=== PATIENT | female | born 1940 ===

== ENCOUNTER → 2021-11-27 10:44 | Outpatient (BNVA) | payer MEDICARE, MEDICAID, SELFPAY | PROVIDERS: PCP Family Medicine; Referring Provider Family Medicine; Visit Provider Internal Medicine Cardiovascular Disease | DX: E66.01 Morbid (severe) obesity due to excess calories (principal); R07.9 Chest pain, unspecified; I45.10 Unspecified right bundle-branch block; R06.00 Dyspnea, unspecified | CPT/HCPCS: 93005; 99203 ==

== ENCOUNTER 2021-11-27 11:08 | Outpatient (CLI) | payer MEDICARE, MEDICAID, SELFPAY ==
--- NOTE | 2021-11-27 11:00 | RT.EKG_ITS ---
APPROVED REPORT Exam: Resting ECG Reason for Exam: NPW, Baseline needed Patient Location: O HR:90 bpm ECG Measurements Heart Rate 90 AXIS [place] 198 P -81 QRSd 152 QRS 36 QT 416 T 10 QTc 509 Conclusion Sinus l rhythm...P axis (-45,135) Right bundle branch block...QRSd>120, terminal axis(90,270)
== END 2021-11-27 11:09 | disposition home or self-care (01) ==
LOC: DI.CARD 11:09
PROVIDERS: PCP Family Medicine; Visit Provider Internal Medicine Cardiovascular Disease
DX: R06.00 Dyspnea, unspecified (principal); R07.89 Other chest pain
CPT/HCPCS: 93010

== ENCOUNTER 2022-08-23 13:56 | Outpatient (CLI) | payer MEDICARE, MEDICAID, SELFPAY ==
--- OUTSIDE RECORDS SUMMARY | 2022-08-23 14:07 | XMS_ITS | Continuity of Care Document ---
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 Name Role Phone Alison Conley Primary Care Physician Encounter [facility] Date(s): 04/04/22 - 04/04/22 [facility] [address] [place] [address] Discharge Disposition: Home or Self Care Attending Physician: Alison Conley MD Admitting Physician: Alison Conley MD Referring Physician: Alison Conley MD Allergies, Adverse Reactions, Alerts No Known Medication Allergies Substance Reaction Severity Status MUSHROOM Anaphylactic reaction Unknown Active Assessment and Plan Future Appointments Immunizations Given and Recorded Vaccine Date Status Refusal Reason influenza virus vaccine, inactivated 03/21/22 Give n influenza virus vaccine, inactivated 03/16/20 Yvon rded influenza virus vaccine, inactivated 03/22/15 Yvon rded influenza virus vaccine, inactivated 03/09/14 Yvon rded influenza virus vaccine, inactivated 02/23/13 Yvon rded influenza virus vaccine, inactivated 03/10/12 Yvon rded influenza virus vaccine, inactivated 03/08/11 Yvon rded influenza virus vaccine, inactivated 03/22/10 Yvon rded influenza virus vaccine, inactivated 04/06/09 Yvon rded influenza virus vaccine, inactivated 03/31/08 Yvon rded influenza virus vaccine, inactivated 03/16/07 Yvon rded influenza virus vaccine, inactivated 04/03/06 Yvon rded influenza virus vaccine, inactivated 04/09/05 Yvon rded influenza, unspecified formulation 03/15/21 Record ed SARS-CoV-2 (COVID-19) mRNA-1273 vaccine 08/28/20 R ecorded SARS-CoV-2 (COVID-19) mRNA-1273 vaccine 07/31/20 R ecorded zoster vaccine, inactivated 04/18/20 Recorded pneumococcal 13-valent conjugate vaccine 12/15/15 Recorded tetanus/diphth/pertuss (Tdap) adult/adol 11/05/10 Recorded Novel [id number], all formulation 06/21/09 Recorded zoster vaccine live 10/29/07 Recorded pneumococcal 23-polyvalent vaccine 09/08/06 Record ed pneumococcal 23-polyvalent vaccine 03/16/97 Record ed tetanus-diphth toxoids (Td) adult/adol 04/16/01 Re corded Medications acetaminophen-codeine 300 mg-30 mg oral tablet 2 tab, Oral, TID, PRN other (see comment), as needed, # 30 tab, 0 Refill(s), Pharmacy: [email or web address] Start Date: 11/27/21 Status: Ordered Advair Diskus 500 mcg-50 mcg inhalation powder 1 puff, Inhale, BID Start Date: 10/31/21 Status: Ordered aspirin 81 mg oral delayed release tablet 1 tab, Oral, Daily, for 90 days, 0 Refill(s) Start Date: 10/31/21 Status: Ordered atenolol 100 mg oral tablet 100 mg = 1 tab, Oral, Daily, for 90 days, # 90 tab, 1 Refill(s), Pharmacy: [facility] Start Date: 12/13/21 Status: Ordered BD UF SHORT PEN NEEDLES 8MM X 31 GAUGE BD UF SHORT PEN NEEDLES 8MM X 31 GAUGE, SIG USE 4 PEN NEEDLES DAILY QTY 100 X 6 REFILLS, Supply, See instructions, # 1 EA, 0 Refill(s), Pharmacy: [facility] Start Date: 11/06/21 Status: Ordered brimonidine 0.2% ophthalmic solution 1 drops, Eye-Right, BID Start Date: 12/05/21 Status: Ordered calcium (as carbonate)-vitamin D 600 mg-400 intl units oral tablet 1 tab, Oral, Daily, for 90 days; buys OTC DO NOT SEND RX Start Date: 10/31/21 Status: Ordered cetirizine 10 mg oral tablet 1 tab, Oral, Daily, Take for 90 days, 0 Refill(s) Start Date: 10/31/21 Status: Ordered Colace 100 mg oral capsule 1 cap, Oral, BID, PRN other (see comment), as needed, 0 Refill(s) Start Date: 10/31/21 Status: Ordered DilTIAZem (Eqv-Cardizem CD) 120 mg/24 hours oral capsule, extended release 1 cap, Oral, Daily, # 90 cap, 2 Refill(s), Pharmacy: [facility]58, 157.48, cm, 12/29/21 14:21:00 EDT, Height/Length Dosing, 117.93, kg, 12/29/21 14:21:00 EDT, Weight Dosing Start Date: 04/02/22 Status: Ordered DME Supply, See instructions, # 1 EA, 0 Refill(s) Start Date: 10/31/21 Status: Ordered DME Supply, See instructions, # 1 EA, 0 Refill(s) Start Date: 10/31/21 Status: Ordered DME Supply, See instructions, # 1 EA, 0 Refill(s) Start Date: 10/31/21 Status: Ordered DME Supply, See instructions, # 1 EA, 0 Refill(s) Start Date: 10/31/21 Status: Ordered Eliquis 5 mg oral tablet 1 tab, Oral, BID, # 60 tab, 1 Refill(s), Pharmacy: [facility], 157.48, cm, 12/29/21 14:21:00 EDT, Height/Length Dosing, 117.93, kg, 12/29/21 14:21:00 EDT, Weight Dosing Start Date: 03/11/22 Status: Ordered FLUoxetine 10 mg oral capsule 1 cap, Oral, every morning, # 90 cap, 2 Refill(s), Pharmacy: [facility], 157.48, cm, 12/29/21 14:21:00 EDT, Height/Length Dosing, 117.93, kg, 12/29/21 14:21:00 EDT, Weight Dosing Start Date: 04/02/22 Status: Ordered fluticasone 50 mcg/inh nasal spray 50 mcg 1 sprays, Nasal, every night at bedtime, for 30 days, # 15.8 mL, 3 Refill(s), Pharmacy: [facility], 157.48, cm, 12/29/21 14:21:00 EDT, Height/Length Dosing, 117.93, kg, 12/29/21 14:21:00 EDT, Weight Dosing Start Date: 01/07/22 Status: Ordered folic acid 1 mg oral tablet 1 tab, Oral, every morning, 0 Refill(s) Start Date: 10/31/21 Status: Ordered furosemide 40 mg oral tablet 40 mg = 1 tab, Oral, Daily, for 90 days, # 90 tab, 3 Refill(s), Pharmacy: [facility], 157.48, cm, 12/29/21 14:21:00 EDT, Height/Length Dosing, 117.93, kg, 12/29/21 14:21:00 EDT, Weight Dosing Start Date: 01/22/22 Status: Ordered gabapentin 100 mg oral capsule 1 cap, Oral, every evening, for 90 days, 0 Refill(s) Start Date: 10/31/21 Status: Ordered glucosamine 500 mg oral capsule 500 mg = 1 cap, Oral, BID, 0 Refill(s) Start Date: 10/31/21 Status: Ordered Incruse Ellipta 62.5 mcg/inh inhalation powder 1 puff, Inhale, Daily Start Date: 10/31/21 Status: Ordered lansoprazole 15 mg oral delayed release capsule 1 cap, Oral, Daily, for 90 days, 0 Refill(s) Start Date: 10/31/21 Status: Ordered Levemir FlexTouch 100 units/mL subcutaneous solution 55 units =, Subcutaneous, BID, # 45 mL, 3 Refill(s), Pharmacy: [facility], 157.48, cm, 12/29/21 14:21:00 EDT, Height/Length Dosing, 117.93, kg, 12/29/21 14:21:00 EDT, Weight Dosing Start Date: 01/07/22 Status: Ordered losartan 50 mg oral tablet 50 mg = 1 tab, Oral, Daily, # 90 tab, 0 Refill(s) Start Date: 10/31/21 Status: Ordered magnesium glycinate 200 mg oral tablet 400 mg = 2 tab, Oral, every evening, # 180 tab, 0 Refill(s), Pharmacy: [facility] Start Date: 12/06/21 Stop Date: 03/06/22 Status: Ordered montelukast 10 mg oral tablet 10 mg = 1 tab, Oral, Daily, # 90 tab, 1 Refill(s), Pharmacy: [facility], 157.48, cm, 12/29/21 14:21:00 EDT, Height/Length Dosing, 117.93, kg, 12/29/21 14:21:00 EDT, Weight Dosing Start Date: 03/08/22 Status: Ordered multivitamin adult, oral tablet 1 tab, Oral, Daily, 0 Refill(s) Start Date: 10/31/21 Status: Ordered nitroglycerin 0.4 mg sublingual tablet 1 tab, SL, PRN other (see comment), as needed, 0 Refill(s) Start Date: 10/31/21 Status: Ordered NovoLOG FlexPen 100 units/mL injectable solution 22 units =, Subcutaneous, TID, # 15 mL, 2 Refill(s), Pharmacy: [facility], 157.48, cm, 12/29/21 14:21:00 EDT, Height/Length Dosing, 117.93, kg, 12/29/21 14:21:00 EDT, Weight Dosing Start Date: 02/05/22 Status: Ordered potassium chloride 20 mEq oral tablet, extended release 20 mEq = 1 tab, Oral, Daily, PRN other (see comment), as needed with Lasix, # 90 tab, 0 Refill(s), Pharmacy: [facility], 157.48, cm, 12/29/21 14:21:00 EDT, Height/Length Dosing, 117.93, kg,12/29/21 14:21:00 EDT, Weight Dosing Start Date: 03/08/22 Status: Ordered pramipexole 0.125 mg oral tablet 1 tab, Oral, BID, for restless legs, 0 Refill(s) Start Date: 10/31/21 Status: Ordered rosuvastatin 5 mg oral tablet 5 mg = 1 tab, Oral, every evening, for 90 days, # 90 tab, 3 Refill(s), Pharmacy: [facility] Start Date: 11/19/21 Status: Ordered Send to [facility], [facility], Supply, See instructions, # 1 EA, 0 Refill(s) Start Date: 12/06/21 Status: Ordered Ventolin HFA 90 mcg/inh inhalation aerosol 180 mcg 2 puffs, Inhale, every 6 hr, use with spacer chamber as needed, # 18 g, 0 Refill(s), Pharmacy: [facility], 157.48, cm, 12/29/21 14:21:00 EDT, Height/Length Dosing, 117.93, kg, 12/29/21 14:21:00 EDT, Weight Dosing Start Date: 03/21/22 Status: Ordered Vitamin D3 1 tab, Oral, Daily, 0 Refill(s) Start Date: 10/31/21 Status: Ordered Problem List Condition Confirmation Course Effective Dates Status H ealth Status Informant Abdominal bloating Confirmed Active Acute pulmonary embolism Confirmed Active Allergic rhinitis Confirmed Active Amnesia Confirmed Active Backache Confirmed Active Bilateral deafness Confirmed Active Body mass index 40+ - severely obese Confirmed Active Bunion Confirmed 08/14/20 Active Cerebrovascular disease Confirmed Active [place] 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 edema Confirmed 10/19/20 Active Cystoid macular retinal degeneration Confirmed Active Depressive disorder Confirmed Active Diabetic peripheral neuropathy Confirmed 09/07/18 Active Dysphagia Confirmed Active Dyspnea Confirmed Active Gastroesophageal reflux disease Confirmed Active Generalized edema Confirmed Active History of polyp of colon Confirmed Active Hyperlipidemia Confirmed 09/07/18 Active Hypertensive disorder Confirmed Active Incisional hernia Confirmed Active Elevated glucose Confirmed Active Insomnia Confirmed Active Intrinsic asthma Confirmed Active Iron deficiency anemia Confirmed Active Irritable bowel syndrome Confirmed Active Kidney disease Confirmed Active 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 Not for resuscitation Confirmed Active Obstructive sleep apnea syndrome Confirmed 09/29/18 Active Osteoarthritis Confirmed Active Proteinuria Confirmed Active Elevated TSH Confirmed Active Restless legs Confirmed 04/17/20 Active Right bundle branch block Confirmed Active Sciatica Confirmed Active Type 2 diabetes mellitus without complication Confirmed Active Umbilical hernia without obstruction or gangrene Confirmed Active Vertiginous syndrome Confirmed Active Procedures Procedure Date Related Diagnosis Body Site Status Echocardiography (procedure) 1 02/09/20 Completed Endoscopy 2 08/16/19 Completed Colonoscopy 3 10/05/18 Completed Cataract surgery of right eye 04/07/14 Completed Hernia repair 4 06/15/95 Completed Foot repair 5 06/15/81 Completed 165% EF 2With EGD- gastritis; 03/31/2017 polyp adjacent to vocal chords, small hiatal hernia, multiple gastric polyps, pedunculated duodenal polyps. 08/25/07, 12/10/0112/14/02 07/12/97 3over 10 polyps of colon, diverticular disease, external hemorrhoids. 08/30/15- poor prep, 2 polyps seen. 05/31/2015 4umbilical hernia repair with mesh 5right tendon repair Social History Social History Type Response Tobacco Never tobacco user T obacco Use:. Sex Female Patient Care team information Personnel Name: Alison Conley MD Address: Address: [place] [address]- [place]
--- OUTSIDE RECORDS SUMMARY | 2022-08-23 14:07 | XMS_ITS | CCD ---
Author Name Unknown Address [address] [place] [address] [phone] Organization Unknown Address [address] [place] [address] [phone] Care Team Providers Care Construction Helper Name Role Phone ELLEN PADILLA Attending Physician [phone] Vital Signs Unknown or Not Available. Allergies Unknown or Not Available. Procedures Unknown or Not Available. History of Immunizations Unknown or Not Available. Problems Unknown or Not Available. Results Unknown or Not Available. Active Medications Unknown or Not Available. Medications Administered During Visit Unknown or Not Available. Encounters Encounter Diagnosis Diagnosis Code Start Date Abnormal results of pulmonary function studies R 942 04/20/2021 Social History Smoking Status Code Start Date End Date Never smoker [id number] Patient Decision Aids Unknown or Not Available. Discharge Instructions You were admitted to [facility] on 04/20/2021 10:42 with a principal diagnosis of Abnormal results of pulmonary function studies You were discharged from [facility] on 04/20/2021 10:42 Should you have any questions prior to discharge, please contact a member of your healthcare team. If you have left the hospital and have any questions, please contact your primary care physician. Chief Complaint and Reason For Visit Unknown or Not Available. Function Status Unknown or Not Available. Plan of Care Unknown or Not Available. Referral/Transition of Care Unknown or Not Available.
--- OUTSIDE RECORDS SUMMARY | 2022-08-23 14:08 | XMS_ITS | Continuity of Care Document ---
Author Name Unknown Organization [facility] Address [address] [place] [address] Care Team Providers Care District [address] Administrator Name Role Phone Alison Conley Primary Care Physician [phone] Encounter [facility] Date(s): 04/24/22 - 04/24/[address] [id number] Encounter Diagnosis Allergy(Discharge Diagnosis) - 03/08/22 Discharge Disposition: Home or Self Care Attending Physician: Farhat Chan MD Admitting Physician: Farhat Chan MD Referring Physician: Alison Conley MD Allergies, Adverse Reactions, Alerts No Known Medication Allergies Substance Reaction Severity Status MUSHROOM Anaphylactic reaction Unknown Active Assessment and Plan Future Appointments Diagnostic Tests Pending * Surgical Pathology [facility] 04/24/22 Functional Status 04/24/22 Recent Travel History No recent travel Other exposure to Infectious Disease Non e Immunizations Given and Recorded Vaccine Date Status [...] Recorded tetanus/diphth/pertuss (Tdap) adult/adol 11/05/10 Recorded Novel [id number], all formulation 06/21/09 Recorded zoster vaccine live 10/29/07 Recorded pneumococcal 23-polyvalent vaccine 09/08/06 Record ed pneumococcal 23-polyvalent vaccine 03/16/97 Record ed tetanus-diphth toxoids (Td) adult/adol 04/16/01 Re corded Medications acetaminophen-codeine 300 mg-30 mg oral tablet 2 tab, Oral, TID, PRN other (see comment), as needed, # 30 tab, 0 Refill(s), Pharmacy: [id number] Start Date: 11/27/21 Status: Ordered Advair [...] days, # 90 tab, 1 Refill(s), Pharmacy: [facility] Start Date: 12/13/21 Status: Ordered BD UF SHORT PEN NEEDLES 8MM X 31 GAUGE BD UF SHORT PEN NEEDLES 8MM X 31 GAUGE, SIG USE 4 PEN NEEDLES DAILY QTY 100 X 6 REFILLS, Supply, See instructions, # 1 EA, 0 Refill(s), Pharmacy: [facility] Start Date: 11/06/21 Status: Ordered brimonidine [...] Daily, # 90 cap, 2 Refill(s), Pharmacy: [facility], 157.48, cm, 12/29/21 14:21:00 EDT, Height/Length [...] BID, # 60 tab, 1 Refill(s), Pharmacy: [facility], 157.48, cm, 12/29/21 14:21:00 EDT, Height/Length Dosing, 117.93, kg, 12/29/21 14:21:00 EDT, Weight Dosing Start Date: 03/11/22 Status: Ordered FLUoxetine 10 mg oral capsule 1 cap, Oral, every morning, # 90 cap, 2 Refill(s), Pharmacy: [facility], 157.48, cm, 12/29/21 14:21:00 EDT, Height/Length Dosing, 117.93, kg, 12/29/21 14:21:00 EDT, Weight Dosing Start Date: 04/02/22 Status: Ordered fluticasone 50 mcg/inh nasal spray 50 mcg 1 sprays, Nasal, every night at bedtime, for 30 days, # 15.8 mL, 3 Refill(s), Pharmacy: [facility], 157.48, cm, 12/29/21 14:21:00 EDT, Height/Length Dosing, 117.93, kg, 12/29/21 14:21:00 EDT, Weight Dosing Start Date: 01/07/22 Status: Ordered folic acid 1 mg oral tablet 1 tab, Oral, every morning, 0 Refill(s) Start Date: 10/31/21 Status: Ordered furosemide 40 mg oral tablet 40 mg = 1 tab, Oral, Daily, for 90 days, # 90 tab, 3 Refill(s), Pharmacy: [facility], 157.48, cm, 12/29/21 14:21:00 EDT, Height/Length Dosing, 117.93, kg, 12/29/21 14:21:00 EDT, Weight Dosing Start Date: 01/22/22 Status: Ordered gabapentin 100 mg oral capsule 100 mg = 1 cap, Oral, every evening, for 90 days, # 90 cap, 0 Refill(s), Pharmacy: [facility], 157.48, cm, 12/29/21 14:21:00 EDT, Height/Length Dosing, 117.93, kg, 12/29/21 14:21:00 EDT, Weight Dosing Start Date: 04/05/22 Status: Ordered glucosamine 500 mg oral capsule [...] BID, # 45 mL, 3 Refill(s), Pharmacy: [facility], 157.48, cm, 12/29/21 14:21:00 EDT, Height/Length Dosing, 117.93, kg, 12/29/21 14:21:00 EDT, Weight Dosing Start Date: 01/07/22 Status: Ordered losartan 50 mg oral tablet 50 mg = 1 tab, Oral, Daily, # 90 tab, 0 Refill(s) Start Date: 10/31/21 Status: Ordered magnesium glycinate 200 mg oral tablet 400 mg = 2 tab, Oral, every evening, # 180 tab, 0 Refill(s), Pharmacy: [facility] Start Date: 12/06/21 Stop Date: 03/06/22 Status: Ordered montelukast 10 mg oral tablet 10 mg = 1 tab, Oral, Daily, # 90 tab, 1 Refill(s), Pharmacy: [facility], 157.48, cm, 12/29/21 14:21:00 EDT, Height/Length [...] TID, # 15 mL, 2 Refill(s), Pharmacy: [facility], 157.48, cm, 12/29/21 14:21:00 EDT, Height/Length Dosing, 117.93, kg, 12/29/21 14:21:00 EDT, Weight Dosing Start Date: 02/05/22 Status: Ordered potassium chloride 20 mEq oral tablet, extended release 20 mEq = 1 tab, Oral, Daily, PRN other (see comment), as needed with Lasix, # 90 tab, 0 Refill(s), Pharmacy: [facility], 157.48, cm, 12/29/21 14:21:00 EDT, Height/Length Dosing, 117.93, kg,12/29/21 14:21:00 EDT, Weight Dosing Start Date: 03/08/22 Status: Ordered pramipexole 0.125 mg oral tablet 1 tab, Oral, BID, for restless legs, 0 Refill(s) Start Date: 10/31/21 Status: Ordered rosuvastatin 5 mg oral tablet 5 mg = 1 tab, Oral, every evening, for 90 days, # 90 tab, 3 Refill(s), Pharmacy: [facility] Start Date: 11/19/21 Status: Ordered Send to [place] Send to [place], Send to [place], Supply, See instructions, # 1 EA, 0 Refill(s) Start Date: 12/06/21 Status: Ordered Ventolin HFA 90 mcg/inh inhalation aerosol 180 mcg 2 puffs, Inhale, every 6 hr, use with spacer chamber as needed, # 18 g, 0 Refill(s), Pharmacy: [facility], 157.48, cm, 12/29/21 14:21:00 EDT, Height/Length [...] Confirmed 08/14/20 Active Cerebrovascular disease Confirmed Active 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 08/25/07, 06/12/07 12/14/02 07/12/97 3over 10 polyps of colon, diverticular disease, external hemorrhoids. 08/30/15- poor prep, 2 polyps seen. 05/31/2015 4umbilical hernia repair with mesh 5right tendon repair Results Laboratory List Name Date Glucose POCT 04/24/22 Most recent to oldest [Reference Range]: 1 Glucose POC [74-106 mg/dL] 87 mg/dL (04/24/22 7:14 AM) Vital Signs Most recent to oldest [Reference Range]: 1 2 3 Temperature Temporal Artery [36-38 Deg C] 35.7 Deg C *LOW* (04/24/22 8:41 AM) 36.8 Deg C (04/24/22 7:10 AM) Temperature Temporal Artery (DegF) [97.3-100 Deg F] 96.26 Deg F *LOW* (04/24/22 8:41 AM) Peripheral Pulse Rate [60-100 bpm] 70 bpm (04/24/22 9:20 AM) 86 bpm (04/24/22 9:00 AM) 65 bpm (04/24/22 8:50 AM) Heart Rate Monitored [60-100 bpm] 70 bpm (04/24/22 9:20 AM) 85 bpm (04/24/22 9:00 AM) 66 bpm (04/24/22 8:50 AM) Respiratory Rate [12-24 br/min] 17 br/min (04/24/22 9:20 AM) 24 br/min (04/24/22 9:00 AM) 23 br/min (04/24/22 8:50 AM) Blood Pressure [90-140/60-90 mmHg] 122/61mmHg (04/24/22 9:20 AM) 113/70mmHg (04/24/22 9:00 AM) 116/51mmHg (04/24/22 8:50 AM) Mean Arterial Pressure, Cuff [65-140 mmHg] 81 mmHg (04/24/22 9:20 AM) 84 mmHg (04/24/22 9:00 AM) 73 mmHg (04/24/22 8:50 AM) Weight 120.3 kg (04/24/22 7:10 AM) Weight Estimated 117.93 kg (04/16/22 9:39 AM) Height 157 cm (04/24/22 7:10 AM) Social History Social History Type Response Tobacco Never tobacco user T obacco Use:. Sex Female Hospital Discharge Instructions Patient Education 04/24/2022 08:22:02 ss colonoscopy discharge instructions (CUSTOM) COLONOSCOPY / SIGMOIDOSCOPY Following day: Return to full activity, including work. Diet: Eat and drink normally, unless instructed otherwise. Treatment for common after affects: Mild abdominal pain, bloating, or excessive gas: Rest, eat lightly and use a heating pad. Symptoms to watch for and report to your physician: SEVERE abdominal pain or bloating. Fever within 24 hours after procedure. A large amount of rectal bleeding. (A small amount of blood from the rectum is not serious, especially if hemorrhoids are present.) If a polyp has been removed- for the next seven days: Do not take aspirin. If you did NOT stop taking aspirin before your procedure, continue taking it even if you???ve had a polyp removed. If bright red rectal bleeding occurs, call your physician. If you have had a Colonoscopy: Do not attempt to drive a vehicle or operate power equipment of any kind for at least 24 hours after discharge from the hospital. Do not consume alcoholic beverages or other mood-altering drugs on the day of surgery. Mild irritation at needle site: Apply warm, moist pack to area for 20 minutes four times a day for 2-3 days. Call physician if persistent redness and/or drainage at needle site. In the event of any problems after surgery, do not hesitate to contact your doctor, [facility] , or the Emergency Room at [phone]. Diagnosis: Doctor: Follow Up Appointment: 04/24/2022 08:21:53 Colon Polyps Colon Polyps Colon polyps are tissue growths inside the colon, which is part of the large intestine. They are one of the types of polyps that can grow in the body. A polyp may be a round bump or a mushroom-shapedgrowth. You could have one polyp or more than one. Most colon polyps are noncancerous (benign). However, some colon polyps can become cancerous over time. Finding and removing the polyps early can help prevent this. What are the causes? The exact cause of colon polyps is not known. What increases the risk? The following factors may make you more likely to develop this condition: ??? Having a family history of colorectal cancer or colon polyps. ??? Being older than 45 years of age. ??? Being younger than 45 years of age and having a significant family history of colorectal canceror colon polyps or a genetic condition that puts you at higher risk of getting colon polyps. ??? Having inflammatory bowel disease, such as ulcerative colitis or Crohn's disease. ??? Having certain conditions passed from parent to child (hereditary conditions), such as: ??? Familial adenomatous polyposis (FAP). ??? Law syndrome. ??? Turcot syndrome. ??? Peutz???Jeghers syndrome. ??? MUTYH-associated polyposis (MAP). ??? Being overweight. ??? Certain lifestyle factors. These include smoking cigarettes, drinking too much alcohol, not getting enough exercise, and eating a diet that is high in fat and red meat and low in fiber. ??? Having had childhood cancer that was treated with radiation of the abdomen. What are the signs or symptoms? Many times, there are no symptoms. If you have symptoms, they may include: ??? Blood coming from the rectum during a bowel movement. ??? Blood in the stool (feces). The blood may be bright red or very dark in color. ??? Pain in the abdomen. ??? A change in bowel habits, such as constipation or diarrhea. How is this diagnosed? This condition is diagnosed with a colonoscopy. This is a procedure in which a lighted, flexible scope is inserted into the opening between the buttocks (anus) and then passed into the colon to examine the area. Polyps are sometimes found when a colonoscopy is done as part of routine cancer screening tests. How is this treated? This condition is treated by removing any polyps that are found. Most polyps can be removed during a colonoscopy. Those polyps will then be tested for cancer. Additional treatment may be needed depending on the results of testing. Follow these instructions at home: Eating and drinking ??? Eat foods that are high in fiber, such as fruits, vegetables, and whole grains. ??? Eat foods that are high in calcium and vitamin D, such as milk, cheese, yogurt, eggs, liver, fish, and broccoli. ??? Limit foods that are high in fat, such as fried foods and desserts. ??? Limit the amount of red meat, precooked or cured meat, or other processed meat that you eat, such as hot dogs, sausages, garnett, or meat loaves. ??? Limit sugary drinks. Lifestyle ??? Maintain a healthy weight, or lose weight if recommended by your health care provider. ??? Exercise every day or as told by your health care provider. ??? Do not use any products that contain nicotine or tobacco, such as cigarettes, e-cigarettes, andchewing tobacco. If you need help quitting, ask your health care provider. ??? Do not drink alcohol if: ??? Your health care provider tells you not to drink. ??? You are , may be , or are planning to become . ??? If you drink alcohol: ??? Limit how much you use to: ??? 0???1 drink a day for women. ??? 0???2 drinks a day for men. ??? Know how much alcohol is in your drink. In the [place] one drink equals one 12 oz bottle of beer (355 mL), one 5 oz glass of wine (148 mL), or one 1?? oz glass of hard liquor (44 mL). General instructions ??? Take acmt-cfl-fcotbep and prescription medicines only as told by your health care provider. ??? Keep all follow-up visits. This is important. This includes having regularly scheduled colonoscopies. Talk to your health care provider about when you need a colonoscopy. Contact a health care provider if: ??? You have new or worsening bleeding during a bowel movement. ??? You have new or increased blood in your stool. ??? You have a change in bowel habits. ??? You lose weight for no known reason. Summary ??? Colon polyps are tissue growths inside the colon, which is part of the large intestine. They are one type of polyp that can grow in the body. ??? Most colon polyps are noncancerous (benign), but some can become cancerous over time. ??? This condition is diagnosed with a colonoscopy. ??? This condition is treated by removing any polyps that are found. Most polyps can be removed during a colonoscopy. This information is not intended to replace advice given to you by your health care provider. Make sure you discuss any questions you have with your health care provider. Document Revised: 09/20/2020 Document Reviewed: 09/20/2020 [employer] Patient Education ?? 2021 [employer]. Discharge instructions * Keith Reece RN: PERFORM Event Display: Discharge Instructions Authored Date: [id number] JOANN EWA Seaman :1940 Age:82 years Sex:Female Visit Date:04/24/2022 Primary Care Physician: Alison Conley MD Hospital Discharge Instructions We would like to thank you for allowing us to assist you with your healthcare needs. The following includes patient education materials and information regarding your injury/illness. After you leave the hospital, you may get your health information including your test results, physician notes and discharge information by accessing your Patient Portal. Your Next Steps Scheduled Future Appointments 2021 10:15 AM EST ?? With: Amara Sewell NP Where: [facility] [address] [place] [address] Status: Confirmed 2021 1:00 PM EST ?? With: Paty Lanier PA-C Where: [facility] [address], [address] [place] [address] Status: Confirmed Friday 1:20 PM EST ?? Where: [facility] [address] [place] [address] Status: Confirmed Your Summary Your Care Team Admitting Physician - Farhat Chan MD Attending Physician - Farhat Chan MD Primary Care Physician - Alison Conley MD Referring Physician - Alison Conley MD Your Diagnosis Allergy Tests Performed/Pending Glucose POCT Allergies MUSHROOM??(Anaphylactic reaction) No Known Medication Allergies Education Materials COLONOSCOPY / SIGMOIDOSCOPY ? Following day: Return to full activity, including work. Diet: Eat and drink normally, unless instructed otherwise. ? Treatment for common after affects: Mild abdominal pain, bloating, or excessive gas: Rest, eat lightly and use a heating pad. ? Symptoms to watch for and report to your physician: SEVERE abdominal pain or bloating. ? Fever within 24 hours after procedure. ? A large amount of rectal bleeding. (A small amount of blood from the rectum is not serious, especially if hemorrhoids are present.) ? If a polyp has been removed- for the next seven days: Do not take aspirin. If you did NOT stop taking aspirin before your procedure, continue taking it even if you???ve had a polyp removed. ? If bright red rectal bleeding occurs, call your physician. ? If you have had a Colonoscopy: Do not attempt to drive a vehicle or operate power equipment of any kind for at least 24 hours after discharge from the hospital. ? Do not consume alcoholic beverages or other mood-altering drugs on the day of surgery. ? Mild irritation at needle site: Apply warm, moist pack to area for 20 minutes four times a day for 2-3 days. ? Call physician if persistent redness and/or drainage at needle site. ? In the event of any problems after surgery, do not hesitate to contact your doctor, [facility] , or the Emergency Room at [phone]. Diagnosis: Doctor: Follow Up Appointment: Colon Polyps Colon polyps are tissue growths inside the colon, which is part of the large intestine. They are one of the types of polyps that can grow in the body. A polyp may be a round bump or a mushroom-shapedgrowth. You could have one polyp or more than one. Most colon polyps are noncancerous (benign). However, some colon polyps can become cancerous over time. Finding and removing the polyps early can help prevent this. What are the causes? The exact cause of colon polyps is not known. What increases the risk? The following factors may make you more likely to develop this condition: ? Having a family history of colorectal cancer or colon polyps. ? Being older than 45 years of age. ? Being younger than 45 years of age and having a significant family history of colorectal cancer or colon polyps or a genetic condition that puts you at higher risk of getting colon polyps. ? Having inflammatory bowel disease, such as ulcerative colitis or Crohn's disease. ? Having certain conditions passed from parent to child (hereditary conditions), such as: ? Familial adenomatous polyposis (FAP). ? Law syndrome. ? Turcot syndrome. ? Peutz???Jeghers syndrome. ? MUTYH-associated polyposis (MAP). ? Being overweight. ? Certain lifestyle factors. These include smoking cigarettes, drinking too much alcohol, not gettingenough exercise, and eating a diet that is high in fat and red meat and low in fiber. ? Having had childhood cancer that was treated with radiation of the abdomen. What are the signs or symptoms? Many times, there are no symptoms. If you have symptoms, they may include: ? Blood coming from the rectum during a bowel movement. ? Blood in the stool (feces). The blood may be bright red or very dark in color. ? Pain in the abdomen. ? A change in bowel habits, such as constipation or diarrhea. How is this diagnosed? This condition is diagnosed with a colonoscopy. This is a procedure in which a lighted, flexible scope is inserted into the opening between the buttocks (anus) and then passed into the colon to examine the area. Polyps are sometimes found when a colonoscopy is done as part of routine cancer screening tests. How is this treated? This condition is treated by removing any polyps that are found. Most polyps can be removed during a colonoscopy. Those polyps will then be tested for cancer. Additional treatment may be needed depending on the results of testing. Follow these instructions at home: Eating and drinking ? Eat foods that are high in fiber, such as fruits, vegetables, and whole grains. ? Eat foods that are high in calcium and vitamin D, such as milk, cheese, yogurt, eggs, liver, fish, and broccoli. ? Limit foods that are high in fat, such as fried foods and desserts. ? Limit the amount of red meat, precooked or cured meat, or other processed meat that you eat, such as hot dogs, sausages, garnett, or meat loaves. ? Limit sugary drinks. Lifestyle ? Maintain a healthy weight, or lose weight if recommended by your health care provider. ? Exercise every day or as told by your health care provider. ? Do not use any products that contain nicotine or tobacco, such as cigarettes, e- cigarettes, and chewing tobacco. If you need help quitting, ask your health care provider. ? Do not drink alcohol if: ? Your health care provider tells you not to drink. ? You are , may be , or are planning to become . ? If you drink alcohol: ? Limit how much you use to: ? 0???1 drink a day for women. ? 0???2 drinks a day for men. ? Know how much alcohol is in your drink. In the [place] one drink equals one 12 oz bottle of beer (355mL), one 5 oz glass of wine (148 mL), or one 1?? oz glass of hard liquor (44 mL). General instructions ? Take mxqw-pnv-nvbwwlh and prescription medicines only as told by your health care provider. ? Keep all follow-up visits. This is important. This includes having regularly scheduled colonoscopies. Talk to your health care provider about when you need a colonoscopy. Contact a health care provider if: ? You have new or worsening bleeding during a bowel movement. ? You have new or increased blood in your stool. ? You have a change in bowel habits. ? You lose weight for no known reason. Summary ? Colon polyps are tissue growths inside the colon, which is part of the large intestine. They are one type of polyp that can grow in the body. ? Most colon polyps are noncancerous (benign), but some can become cancerous over time. ? This condition is diagnosed with a colonoscopy. ? This condition is treated by removing any polyps that are found. Most polyps can be removed during a colonoscopy. This information is not intended to replace advice given to you by your health care provider. Make sure you discuss any questions you have with your health care provider. Document Revised: 09/20/2020 Document Reviewed: 09/20/2020 [employer] Patient Education ?? 2021 [employer] Patient Name:DAVIDEWA I have received this information and my questions have been answered. Patient/Receiving Specialist Name: Patient/Receiving Specialist Signature: Relationship to Patient: Witness Name/Signature: Date: Electronically Signed on: 04/24/2022 09:23 ESTSigned by:TD Colonoscopy study * Melina Barkley: PERFORM Event Display: Colonoscopy Authored Date: [id number] * Melina Barkley: PERFORM Event Display: Colonoscopy Authored Date: [id number] * Melina Barkley: PERFORM Event Display: Colonoscopy Authored Date: [id number] History and physical note * Melina Barkley: PERFORM Event Display: History and Physical Authored Date: [id number] EWA DAVID :1940 Age:81 years Sex:Female Primary Care Physician: Alison Conley MD History of colon polyps. Previous colonoscopy and path results have been scanned into [employer] Electronically Signed on 02/14/22 02:49 PM Melina Barkley Patient Care team information Care Team Personnel Name: Alison Conley MD Position: Physician Member Role: Primary Care Physician Address: Address: [facility] [place] [address]- [place] Care Team Related Persons Name: OLAF DAVID Address: Home Name: EDDIE PERRY Address: Home
--- OUTSIDE RECORDS SUMMARY | 2022-08-23 14:08 | XMS_ITS | Continuity of Care Document ---
Author Name Unknown Organization [facility] Address [address] [place] [address] Care Team Providers Care [employer] Driver Name Role Phone Alison Conley Primary Care Physician [phone] Encounter [facility] Date(s): 04/04/22 - 04/04/[address] [id number] Encounter Diagnosis Left shoulder pain(Discharge Diagnosis) - 04/04/22 Dyspnea(Discharge Diagnosis) - 04/04/22 Discharge Disposition: Home or Self Care Attending [...] Recorded tetanus/diphth/pertuss (Tdap) adult/adol 11/05/10 Recorded Novel [id number], all formulation 06/21/09 Recorded zoster vaccine live 10/29/07 Recorded pneumococcal 23-polyvalent vaccine 09/08/06 Record ed pneumococcal 23-polyvalent vaccine 03/16/97 Record ed tetanus-diphth toxoids (Td) adult/adol 04/16/01 Re corded Medications acetaminophen-codeine 300 mg-30 mg oral tablet 2 tab, Oral, TID, PRN other (see comment), as needed, # 30 tab, 0 Refill(s), Pharmacy: [id number] Start Date: 11/27/21 Status: Ordered Advair [...] days, # 90 tab, 1 Refill(s), Pharmacy: [facility] Start Date: 12/13/21 Status: Ordered BD UF SHORT PEN NEEDLES 8MM X 31 GAUGE BD UF SHORT PEN NEEDLES 8MM X 31 GAUGE, SIG USE 4 PEN NEEDLES DAILY QTY 100 X 6 REFILLS, Supply, See instructions, # 1 EA, 0 Refill(s), Pharmacy: [facility] Start Date: 11/06/21 Status: Ordered brimonidine [...] Daily, # 90 cap, 2 Refill(s), Pharmacy: [facility], 157.48, cm, 12/29/21 14:21:00 EDT, Height/Length [...] BID, # 60 tab, 1 Refill(s), Pharmacy: [facility], 157.48, cm, 12/29/21 14:21:00 EDT, Height/Length Dosing, 117.93, kg, 12/29/21 14:21:00 EDT, Weight Dosing Start Date: 03/11/22 Status: Ordered FLUoxetine 10 mg oral capsule 1 cap, Oral, every morning, # 90 cap, 2 Refill(s), Pharmacy: [facility], 157.48, cm, 12/29/21 14:21:00 EDT, Height/Length Dosing, 117.93, kg, 12/29/21 14:21:00 EDT, Weight Dosing Start Date: 04/02/22 Status: Ordered fluticasone 50 mcg/inh nasal spray 50 mcg 1 sprays, Nasal, every night at bedtime, for 30 days, # 15.8 mL, 3 Refill(s), Pharmacy: [facility], 157.48, cm, 12/29/21 14:21:00 EDT, Height/Length Dosing, 117.93, kg, 12/29/21 14:21:00 EDT, Weight Dosing Start Date: 01/07/22 Status: Ordered folic acid 1 mg oral tablet 1 tab, Oral, every morning, 0 Refill(s) Start Date: 10/31/21 Status: Ordered furosemide 40 mg oral tablet 40 mg = 1 tab, Oral, Daily, for 90 days, # 90 tab, 3 Refill(s), Pharmacy: [facility], 157.48, cm, 12/29/21 14:21:00 EDT, Height/Length [...] BID, # 45 mL, 3 Refill(s), Pharmacy: [facility], 157.48, cm, 12/29/21 14:21:00 EDT, Height/Length Dosing, 117.93, kg, 12/29/21 14:21:00 EDT, Weight Dosing Start Date: 01/07/22 Status: Ordered losartan 50 mg oral tablet 50 mg = 1 tab, Oral, Daily, # 90 tab, 0 Refill(s) Start Date: 10/31/21 Status: Ordered magnesium glycinate 200 mg oral tablet 400 mg = 2 tab, Oral, every evening, # 180 tab, 0 Refill(s), Pharmacy: [facility] Start Date: 12/06/21 Stop Date: 03/06/22 Status: Ordered montelukast 10 mg oral tablet 10 mg = 1 tab, Oral, Daily, # 90 tab, 1 Refill(s), Pharmacy: [facility], 157.48, cm, 12/29/21 14:21:00 EDT, Height/Length [...] TID, # 15 mL, 2 Refill(s), Pharmacy: [facility], 157.48, cm, 12/29/21 14:21:00 EDT, Height/Length Dosing, 117.93, kg, 12/29/21 14:21:00 EDT, Weight Dosing Start Date: 02/05/22 Status: Ordered potassium chloride 20 mEq oral tablet, extended release 20 mEq = 1 tab, Oral, Daily, PRN other (see comment), as needed with Lasix, # 90 tab, 0 Refill(s), Pharmacy: [facility], 157.48, cm, 12/29/21 14:21:00 EDT, Height/Length Dosing, 117.93, kg,12/29/21 14:21:00 EDT, Weight Dosing Start Date: 03/08/22 Status: Ordered pramipexole 0.125 mg oral tablet 1 tab, Oral, BID, for restless legs, 0 Refill(s) Start Date: 10/31/21 Status: Ordered rosuvastatin 5 mg oral tablet 5 mg = 1 tab, Oral, every evening, for 90 days, # 90 tab, 3 Refill(s), Pharmacy: [facility] Start Date: 11/19/21 Status: Ordered Send to [facility] Send to [facility], Send to [facility], Supply, See instructions, # 1 EA, 0 Refill(s) Start Date: 12/06/21 Status: Ordered Ventolin HFA 90 mcg/inh inhalation aerosol 180 mcg 2 puffs, Inhale, every 6 hr, use with spacer chamber as needed, # 18 g, 0 Refill(s), Pharmacy: [facility], 157.48, cm, 12/29/21 14:21:00 EDT, Height/Length [...] Confirmed 08/14/20 Active Cerebrovascular disease Confirmed Active [place] 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
--- OUTSIDE RECORDS SUMMARY | 2022-08-23 14:08 | XMS_ITS | Continuity of Care Document ---
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 Name Role Phone Alison Conley Primary Care Physician [facility] Date(s): 07/06/22 - 07/06/[address] [address] Encounter Diagnosis Pleural effusion(Discharge Diagnosis) - 07/06/22 Shortness of breath(Discharge Diagnosis) - 07/06/22 COVID-19(Discharge Diagnosis) - 07/06/22 Discharge Disposition: Home or Self Care Attending Physician: Remy Duopnt MD Admitting Physician: Remy Dupont MD Allergies, Adverse Reactions, Alerts No Known Medication Allergies Substance Reaction Severity Status MUSHROOM Anaphylactic reaction Unknown Active Assessment and Plan Extracted from: Title:Clinical Document Author:Maria Dolores Hurt te:07/06/22 Diagnosis: 1. Pleural effusi on Comment: Diagnosis: 2. Shortness of breath Comment: Diagnosis: 3. COVID-19 Comment: Diagnosis: Shortness of breath Comment: Future Appointments Functional Status 07/06/22 Other exposure to Infectious Disease COV ID-19 Symptoms Present Immunizations Given and Recorded Vaccine Date Status [...] Recorded tetanus/diphth/pertuss (Tdap) adult/adol 11/05/10 Recorded Novel [id number], all formulation 06/21/09 Recorded zoster vaccine live 10/29/07 Recorded pneumococcal 23-polyvalent vaccine 09/08/06 Record ed pneumococcal 23-polyvalent vaccine 03/16/97 Record ed tetanus-diphth toxoids (Td) adult/adol 04/16/01 Re corded Medications acetaminophen-codeine 300 mg-30 mg oral tablet 2 tab, Oral, TID, PRN other (see comment), as needed, # 30 tab, 0 Refill(s), Pharmacy: [facility], 157.48, cm, 12/29/21 14:21:00 EDT, Height/Length Dosing, 117.93, kg, 12/29/21 14:21:00 EDT, Weight Dosing Start Date: 05/20/22 Status: Ordered Advair Diskus 500 mcg-50 mcg inhalation powder 1 puff, Inhale, BID, # 60 EA, 6 Refill(s), Pharmacy: [facility], 157.48, cm, 12/29/21 14:21:00 EDT, Height/Length Dosing, 117.93, kg, 12/29/21 14:21:00 EDT, Weight Dosing Start Date: 04/30/22 Status: Ordered aspirin 81 mg oral delayed release tablet 1 tab, Oral, Daily, for 90 days, 0 Refill(s) Start Date: 10/31/21 Status: Ordered atenolol 100 mg oral tablet 1 tab, Oral, Daily, # 90 tab, 2 Refill(s), Pharmacy: [facility], 157.48, cm, 12/29/21 14:21:00 EDT, Height/Length Dosing, 117.93, kg, 12/29/21 14:21:00 EDT, Weight Dosing Start Date: 06/11/22 Status: Ordered BD Short Pen needle 8mm x 31 g BD Short Pen needle 8mm x 31 g, Uses four pen needles daily Diagnosis E11.9, Supply, See instructions, # 100 EA, 6 Refill(s), Pharmacy: [facility] Start Date: 05/02/22 Status: Ordered BD UF SHORT PEN NEEDLE [id number] BD UF SHORT PEN NEEDLE [id number], See Instructions, USE 4 PEN NEEDLES DAILY, # 100 EA, 6 Refill(s), Pharmacy: [facility], 157.48, cm, 12/29/21 14:21:00 EDT, Height/Length Dosing, 117.93, kg, 12/29/21 14:21:00 EDT, Weight Dosing Start Date: 05/08/22 Status: Ordered BD UF SHORT PEN NEEDLES 8MM X 31 GAUGE BD UF SHORT PEN NEEDLES 8MM X 31 GAUGE, SIG USE 4 PEN NEEDLES DAILY QTY 100 X 6 REFILLS, Supply, See instructions, # 1 EA, 0 Refill(s), Pharmacy: [facility] Start Date: 11/06/21 Status: Ordered brimonidine [...] Daily, # 90 cap, 2 Refill(s), Pharmacy: [facility], 157.48, cm, 12/29/21 14:21:00 EDT, Height/Length [...] 1 tab, Oral, BID, # 60 tab, 4 Refill(s), Pharmacy: [facility], 157.48, cm, 12/29/21 14:21:00 EDT, Height/Length Dosing, 117.93, kg, 12/29/21 14:21:00 EDT, Weight Dosing Start Date: 05/02/22 Status: Ordered FLUoxetine 10 mg oral capsule 1 cap, Oral, every morning, # 90 cap, 2 Refill(s), Pharmacy: [facility], 157.48, cm, 12/29/21 14:21:00 EDT, Height/Length Dosing, 117.93, kg, 12/29/21 14:21:00 EDT, Weight Dosing Start Date: 04/02/22 Status: Ordered fluticasone 50 mcg/inh nasal spray 50 mcg 1 sprays, Nasal, every night at bedtime, for 30 days, # 15.8 mL, 3 Refill(s), Pharmacy: [facility], 157.48, cm, 12/29/21 14:21:00 EDT, Height/Length Dosing, 117.93, kg, 12/29/21 14:21:00 EDT, Weight Dosing Start Date: 01/07/22 Status: Ordered folic acid 1 mg oral tablet 1 tab, Oral, every morning, 0 Refill(s) Start Date: 10/31/21 Status: Ordered freestyle alexandre 14 day sensor freestyle alexandre 14 day sensor, to use with freestyle alexandre reader, Supply, See instructions, # 1 EA, 2 Refill(s), Pharmacy: [facility] Start Date: 06/20/22 Status: Ordered furosemide 40 mg oral tablet 40 mg = 1 tab, Oral, Daily, for 90 days, # 90 tab, 3 Refill(s), Pharmacy: [facility], 157.48, cm, 12/29/21 14:21:00 EDT, Height/Length Dosing, 117.93, kg, 12/29/21 14:21:00 EDT, Weight Dosing Start Date: 01/22/22 Status: Ordered gabapentin 100 mg oral capsule 100 mg = 1 cap, Oral, every evening, for 90 days, # 90 cap, 0 Refill(s), Pharmacy: [facility], 157.48, cm, 12/29/21 14:21:00 EDT, Height/Length Dosing, 117.93, kg, 12/29/21 14:21:00 EDT, Weight Dosing Start Date: 07/02/22 Status: Ordered glucosamine 500 mg oral capsule 500 mg = 1 cap, Oral, BID, 0 Refill(s) Start Date: 10/31/21 Status: Ordered Incruse Ellipta 62.5 mcg/inh inhalation powder 1 puff, Inhale, Daily, # 1 EA, 2 Refill(s), Pharmacy: [facility], 157.48, cm, 12/29/21 14:21:00 EDT, Height/Length Dosing, 117.93, kg, 12/29/21 14:21:00 EDT, Weight Dosing Start Date: 05/20/22 Status: Ordered lansoprazole 15 mg oral delayed release capsule 15 mg = 1 cap, Oral, Daily, for 90 days, # 90 cap, 3 Refill(s), Pharmacy: [facility], 157.48, cm, 12/29/21 14:21:00 EDT, Height/Length Dosing, 117.93, kg, 12/29/21 14:21:00 EDT, Weight Dosing Start Date: 06/30/22 Status: Ordered Lasix 40 mg oral tablet 80 mg = 2 tab, Oral, Daily, 2 tabs daily for the next 3 days followed by 1 tab daily, # 93 tab, 0 Refill(s), Pharmacy: [facility], 157, cm, 07/06/22 12:04:00 EST, Height/Length Dosing, 122.47, kg, 07/06/22 12:04:00 EST, Weight Dosing Start Date: 07/06/22 Status: Ordered Levemir FlexTouch 100 units/mL subcutaneous solution 55 units =, Subcutaneous, BID, # 45 mL, 3 Refill(s), Pharmacy: [facility], 157.48, cm, 12/29/21 14:21:00 EDT, Height/Length Dosing, 117.93, kg, 12/29/21 14:21:00 EDT, Weight Dosing Start Date: 06/24/22 Status: Ordered levothyroxine 25 mcg (0.025 mg) oral capsule 25 mcg = 1 cap, Oral, Daily, # 90 cap, 0 Refill(s), Pharmacy: [facility], 157.48, cm, 12/29/21 14:21:00 EDT, Height/Length Dosing, 117.93, kg, 12/29/21 14:21:00 EDT, Weight Dosing Start Date: 05/27/22 Status: Ordered losartan 50 mg oral tablet 50 mg = 1 tab, Oral, Daily, # 90 tab, 0 Refill(s) Start Date: 10/31/21 Status: Ordered magnesium glycinate 200 mg oral tablet 400 mg = 2 tab, Oral, every evening, # 180 tab, 0 Refill(s), Pharmacy: [facility] Start Date: 12/06/21 Stop Date: 03/06/22 Status: Ordered montelukast 10 mg oral tablet 10 mg = 1 tab, Oral, Daily, # 90 tab, 3 Refill(s), Pharmacy: [facility], 157.48, cm, 12/29/21 14:21:00 EDT, Height/Length Dosing, 117.93, kg, 12/29/21 14:21:00 EDT, Weight Dosing Start Date: 06/24/22 Status: Ordered multivitamin adult, oral tablet 1 tab, Oral, Daily, 0 Refill(s) Start Date: 10/31/21 Status: Ordered nitroglycerin 0.4 mg sublingual tablet 1 tab, SL, PRN other (see comment), as needed, 0 Refill(s) Start Date: 10/31/21 Status: Ordered NovoLOG FlexPen 100 units/mL injectable solution 22 units =, Subcutaneous, TID, # 15 mL, 2 Refill(s), Pharmacy: [facility], 157.48, cm, 12/29/21 14:21:00 EDT, Height/Length Dosing, 117.93, kg, 12/29/21 14:21:00 EDT, Weight Dosing Start Date: 02/05/22 Status: Ordered potassium chloride 20 mEq oral tablet, extended release 20 mEq = 1 tab, Oral, Daily, PRN other (see comment), as needed with Lasix, # 90 tab, 0 Refill(s), Pharmacy: [facility], 157.48, cm, 12/29/21 14:21:00 EDT, Height/Length Dosing, 117.93, kg,12/29/21 14:21:00 EDT, Weight Dosing Start Date: 06/24/22 Status: Ordered pramipexole 0.125 mg oral tablet 0.125 mg = 1 tab, Oral, BID, for restless legs, # 180 tab, 0 Refill(s), Pharmacy: [facility], 157.48, cm, 12/29/21 14:21:00 EDT, Height/Length Dosing, 117.93, kg, 12/29/21 14:21:00 EDT, Weight Dosing Start Date: 06/25/22 Status: Ordered rosuvastatin 5 mg oral tablet 5 mg = 1 tab, Oral, every evening, for 90 days, # 90 tab, 3 Refill(s), Pharmacy: [facility] Start Date: 11/19/21 Status: Ordered Send to Joshua Send to Joshua, Send to Joshua, Supply, See instructions, # 1 EA, 0 Refill(s) Start Date: 12/06/21 Status: Ordered Ventolin HFA 90 mcg/inh inhalation aerosol 180 mcg 2 puffs, Inhale, every 6 hr, use with spacer chamber as needed, # 18 g, 0 Refill(s), Pharmacy: [facility], 157.48, cm, 12/29/21 14:21:00 EDT, Height/Length [...] Confirmed 08/14/20 Active Cerebrovascular disease Confirmed Active [place] 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 [...] Obstructive sleep apnea syndrome Confirmed 09/29/18 Active Obstructive sleep apnea Confirmed Active Osteoarthritis Confirmed Active Periodic limb movement disorder Confirmed Active Proteinuria Confirmed Active Elevated TSH Confirmed Active Restless legs Confirmed 04/17/20 Active Right bundle branch block Confirmed Active Sciatica Confirmed Active Left shoulder pain Confirmed Active Type 2 diabetes mellitus without [...] tendon repair Results Laboratory List Name Date .Manual Differential (NCTY) 07/06/22 CBC w/ Diff 07/06/22 Comprehensive Metabolic Panel 07/06/22 NT- Pro BNP 07/06/22 Troponin-I 07/06/22 Most recent to oldest [Reference Range]: 1 WBC [5.0-10.0 x10^3/mcL] 8.9 x10^3/mcL (07/06/22 12:30 PM) RBC [4.1-5.3 x10^6/mcL] 3.6 x10^6/mcL *LOW* (07/06/22 12:30 PM) Segs Man [40-75 %] 82 % *HI* (07/06/22 12:30 PM) Lymph Man [20-50 %] 10 % *LOW* (07/06/22 12:30 PM) Amite Man 6 % *NA* (07/06/22 12:30 PM) Eos Man 1 % *NA* (07/06/22 12:30 PM) BUN [7-18 mg/dL] 31 mg/dL *HI* (07/06/22 12:30 PM) Glucose Level [74-106 mg/dL] 119 mg/dL *HI* (07/06/22 12:30 PM) Potassium Level [3.5-5.1 mmol/L] 4.4 mmo l/L (07/06/22 12:30 PM) MCV [80.0-96.0] 91.2 (07/06/22 12:30 PM) RBC Morph Normal (07/06/22 12:30 PM) AST [15-37 unit/L] 20 unit/L (07/06/22 12:30 PM) ALT [14-59 unit/L] 25 unit/L (07/06/22 12:30 PM) MCHC [31.0-35.0 g/dL] 31.1 g/dL (07/06/22 12:30 PM) Troponin-I [0.0-51.4 pg/mL] 9.4 pg/mL (07/06/22 12:30 PM) Sodium Level [136-145 mmol/L] 137 mmol/L (07/06/22 12:30 PM) Hct [37.0-47.0 %] 33.1 % *LOW* (07/06/22 12:30 PM) Calcium Level [8.5-10.1 mg/dL] 8.6 mg/dL (07/06/22 12:30 PM) Albumin Level [3.4-5.0 g/dL] 2.8 g/dL *LOW* (07/06/22 12:30 PM) Protein Total [6.4-8.2 g/dL] 6.7 g/dL (07/06/22 12:30 PM) MCH [26.0-32.0 pg] 28.4 pg (07/06/22 12:30 PM) Bilirubin Total [0.2-1.0 mg/dL] 0.4 mg/d L (07/06/22 12:30 PM) Hgb [12.0-16.0 g/dL] 10.3 g/dL *LOW* (07/06/22 12:30 PM) Alk Phos [46-146 unit/L] 101 unit/L (07/06/22 12:30 PM) Band Man [0-5 %] 0 % (07/06/22 12:30 PM) Platelets [130-450 x10^3/mcL] 279 x10^3/ mcL (07/06/22 12:30 PM) CO2 [21-32 mmol/L] 27 mmol/L (07/06/22 12:30 PM) eGFR Non-AA [>=60] 32 *LOW* (07/06/22 12:30 PM) eGFR AA [>=60] 32 *LOW* (07/06/22 12:30 PM) NT-proBNP [0-450 pg/mL] 566 pg/mL *HI* (07/06/22 12:30 PM) Chloride Level [98-107 mmol/L] 103 mmol/ L (07/06/22 12:30 PM) RDW-CV [11.7-17.0 %] 16.6 % (07/06/22 12:30 PM) Abs Neut Man 7.3 x10^3/mcL *NA* (07/06/22 12:30 PM) Immature Cells 1 *NA* (07/06/22 12:30 PM) Creatinine Level [0.55-1.02 mg/dL] 1.61 mg/dL *HI* (07/06/22 12:30 PM) Baso Man [0-1 %] 0 % (07/06/22 12:30 PM) Vital Signs Most recent to oldest [Reference Range]: 1 2 3 Peripheral Pulse Rate [60-100 bpm] 91 bpm (07/06/22 3:01 PM) 89 bpm (07/06/22 2:30 PM) 77 bpm (07/06/22 2:11 PM) Heart Rate Monitored [60-100 bpm] 98 bpm (07/06/22 3:01 PM) 89 bpm (07/06/22 2:30 PM) 78 bpm (07/06/22 2:11 PM) Respiratory Rate [12-24 br/min] 23 br/min (07/06/22 3:01 PM) 22 br/min (07/06/22 2:30 PM) 20 br/min (07/06/22 2:11 PM) Blood Pressure [90-140/60-90 mmHg] 158/74mmHg *HI* (07/06/22 3:01 PM) 151/63mmHg *HI* (07/06/22 2:11 PM) 137/58mmHg (07/06/22 1:18 PM) Weight Dosing 122.47 kg (07/06/22 12:04 PM) Weight Estimated 122.47 kg (07/06/22 11:41 AM) Height/Length Dosing 157.000 cm (07/06/22 12:04 PM) Height/Length Estimated 157.000 cm (07/06/22 11:41 AM) Social History Social History Type Response Tobacco Never tobacco user T obacco Use:. Sex Female Hospital Discharge Instructions Patient Education 07/06/2022 13:53:47 Pleural Effusion Pleural Effusion Pleural effusion is an abnormal buildup of fluid in the layers of tissue between the lungs and the inside of the chest (pleural space). The two layers of tissue that line the lungs and the inside of the chest are called pleura. Usually, there is no air in the space between the pleura, only a thin layer of fluid. Some conditions can cause a large amount of fluid to build up, which can cause the lung to collapse if untreated. A pleural effusion is usually caused by another disease that requires treatment. What are the causes? Pleural effusion can be caused by: ??? Heart failure. ??? Certain infections, such as pneumonia or tuberculosis. ??? Cancer. ??? A blood clot in the lung (pulmonary embolism). ??? Complications from surgery, such as from open heart surgery. ??? Liver disease (cirrhosis). ??? Kidney disease. What are the signs or symptoms? In some cases, pleural effusion may cause no symptoms. If symptoms are present, they may include: ??? Shortness of breath, especially when lying down. ??? Chest pain. This may get worse when taking a deep breath. ??? Fever. ??? Dry, long-lasting (chronic) cough. ??? Hiccups. ??? Rapid breathing. An underlying condition that is causing the pleural effusion (such as heart failure, pneumonia, blood clots, tuberculosis, or cancer) may also cause other symptoms. How is this diagnosed? This condition may be diagnosed based on: ??? Your symptoms and medical history. ??? A physical exam. ??? A chest X-ray. ??? A procedure to use a needle to remove fluid from the pleural space (thoracentesis). This fluid is tested. ??? Other imaging studies of the chest, such as ultrasound or CT scan. How is this treated? Depending on the cause of your condition, treatment may include: ??? Treating the underlying condition that is causing the effusion. When that condition improves, the effusion will also improve. Examples of treatment for underlying conditions include: ??? Antibiotic medicines to treat an infection. ??? Diuretics or other heart medicines to treat heart failure. ??? Thoracentesis. ??? Placing a thin flexible tube under your skin and into your chest to continuously drain the effusion (indwelling pleural catheter). ??? Surgery to remove the outer layer of tissue from the pleural space (decortication). ??? A procedure to put medicine into the chest cavity to seal the pleural space and prevent fluid buildup (pleurodesis). ??? Chemotherapy and radiation therapy, if you have cancerous (malignant) pleural effusion. These treatments are typically used to treat cancer. They kill certain cells in the body. Follow these instructions at home: ??? Take fsun-gpb-ztwtjlo and prescription medicines only as told by your health care provider. ??? Ask your health care provider what activities are safe for you. ??? Keep track of how long you are able to do mild exercise (such as walking) before you get short of breath. Write down this information to share with your health care provider. Your ability to exercise should improve over time. ??? Do not use any products that contain nicotine or tobacco, such as cigarettes and e-cigarettes. If you need help quitting, ask your health care provider. ??? Keep all follow-up visits as told by your health care provider. This is important. Contact a health care provider if: ??? The amount of time that you are able to do mild exercise: ??? Decreases. ??? Does not improve with time. ??? You have a fever. Get help right away if: ??? You are short of breath. ??? You develop chest pain. ??? You develop a new cough. Summary ??? Pleural effusion is an abnormal buildup of fluid in the layers of tissue between the lungs and the inside of the chest. ??? Pleural effusion can have many causes, including heart failure, pulmonary embolism, infections,or cancer. ??? Symptoms of pleural effusion can include shortness of breath, chest pain, fever, long-lasting (chronic) cough, hiccups, or rapid breathing. ??? Diagnosis often involves making images of the chest (such as with ultrasound or X-ray) and removing fluid (thoracentesis) to send for testing. ??? Treatment for pleural effusion depends on what underlying condition is causing it. This information is not intended to replace advice given to you by your health care provider. Make sure you discuss any questions you have with your health care provider. Document Revised: 09/11/2021 Document Reviewed: 02/01/2021 [employer] Patient Education ?? 2021 [employer]. 07/06/2022 13:53:41 COVID-19 ??? CDC ([place]) (CUSTOM) What to do if you are sick with coronavirus disease 2019 (COVID-19) If you are sick with COVID-19 or suspect you are infected with the virus that causes COVID-19, follow the steps below to help prevent the disease from spreading to people in your home and communityStay home except to get medical care You should restrict activities outside your home, except for getting medical care. Do not go to work, school, or public areas. Avoid using public transportation, ride-sharing, or taxis. Separate yourself from other people and animals in your home People: As much as possible, you should stay in a specific room and away from other people in your home. Also, you should use a separate bathroom, if available. Animals: Do not handle pets or other animals while sick. See COVID-19 and Animals for more information. Call ahead before visiting your doctor If you have a medical appointment, call the healthcare provider and tell them that you have or may have COVID-19. This will help the healthcare provider???s office take steps to keep other people from getting infected or exposed. Wear a facemask You should wear a facemask when you are around other people (e.g., sharing a room or vehicle) or pets and before you enter a healthcare provider???s office. If you are not able to wear a facemask (for example, because it causes trouble breathing), then people who live with you should not stay in the same room with you, or they should wear a facemask if they enter your room. Cover your coughs and sneezes Cover your mouth and nose with a tissue when you cough or sneeze. Throw used tissues in a lined trash can; immediately wash your hands with soap and water for at least 20 seconds or clean your hands with an alcohol-based hand steel turner that contains at least 60-95% alcohol covering all surfaces of your hands and rubbing them together until they feel dry. Soap and water should be used preferentially if hands are visibly dirty. Avoid sharing personal household items You should not share dishes, drinking glasses, cups, eating utensils, towels, or bedding with otherpeople or pets in your home. After using these items, they should be washed thoroughly with soap and water. Clean your hands often Wash your hands often with soap and water for at least 20 seconds. If soap and water are not available, clean your hands with an alcohol-based hand steel turner that contains at least 60% alcohol, covering all surfaces of your hands and rubbing them together until they feel dry. Soap and water should be used preferentially if hands are visibly dirty. Avoid touching your eyes, nose, and mouth with unwashed hands. Clean all ???high-touch?? surfaces every day High touch surfaces include counters, tabletops, doorknobs, bathroom fixtures, toilets, phones, keyboards, tablets, and bedside tables. Also, clean any surfaces that may have blood, stool, or body fluids on them. Use a household cleaning spray or wipe, according to the label instructions. Labels contain instructions for safe and effective use of the cleaning product including precautions you should take when applying the product, such as wearing gloves and making sure you have good ventilation during use of the product. Monitor your symptoms Seek prompt medical attention if your illness is worsening (e.g., difficulty breathing). Before seeking care, call your healthcare provider and tell them that you have, or are being evaluated for, COVID-19. Put on a facemask before you enter the facility. These steps will help the healthcare provider???s office to keep other people in the office or waiting room from getting infected or exposed. Ask your healthcare provider to call the local or state health department. Persons who are placed under active monitoring or facilitated self-monitoring should follow instructions provided by their local health department or occupational health professionals, as appropriate. If you have a medical emergency and need to call 911, notify the dispatch personnel that you have, or are being evaluated for COVID-19. If possible, put on a facemask before emergency medical services arrive. Discontinuing home isolation Patients with confirmed COVID-19 should remain under home isolation precautions until the risk of secondary transmission to others is thought to be low. The decision to discontinue home isolation precautions should be made on a [id number] basis, in consultation with healthcare providers and [facility] and local health departments. [id number] 08/19/2019 Follow Up Care 07/06/2022 11:41:48 With:Follow up with primary care provider Address: When:1 to 2 weeks Physician Emergency department Note * Sue Nichols MD: PERFORM Event Display: ED Note Physician Authored Date: [id number] EWA DAVID :1940 Age:82 years Sex:Female Visit Date:07/06/2022 Primary Care Physician: Alison Conley MD Basic Information Time Seen: Sue Nichols MD / 07/06/2022 11:55 Chief Complaint pt state that she tested postive for covid the 11th of this month. she feels that she is having ??increasing SOB. she had covid in 2020 and had blood clots, is on a blood thinners still. pt was 90% RA. History Of Present Illness: Approximately 10 days ago patient was diagnosed with COVID??this is her second time getting COVID.?? Patient reports??her first time she had blood clots??and had to be placed on blood thinners she isstill on blood thinners.?? Patient reports she is short of breath??when she goes to move or do much.?? No fever??no ear nose or throat pain patient does have a slight??runny nose??no chest pain??positive shortness of breath especially with exertion??no nausea no vomiting +diarrhea??since start of covid no urinary issues??no increase in chronic??edema??no skin rashes Review of Systems: see hpi for ros Physical Exam Vitals & Measurements HR:??89??(Peripheral)?? HR:??89??(Monitored)?? RR:??22?? BP:??151/63?? SpO2:??99%?? HT:??157.000??cm?? WT:??122.47??kg??(Estimated)?? O2 Therapy:??Room air?? General: Alert and oriented, well nourished,?No??acute distress Eye: PER?Normal??conjunctiva,??No??scleral icterus HENT: Normocephalic,??nontraumatic??Normal hearing Lungs: Clear to auscultation,?Non-labored?? respiration Heart:?Normal?? rate,?Regular??rhythm,?No??murmur,?No??gallop,?No??edema Chest: wall excursion wnl no abnormal movements no obvious deformities Abdomen: Soft, non-tender, non-distended,??No??masses Musculoskeletal:?Normal?? range of motion and strength,?No??tenderness,?No??swelling appreciated compression stockings in place bilaterally Skin: Skin is warm, dry and pink,?No??rashes,?No??lesions Neurologic: Awake, alert and oriented X4 Psychiatric: Cooperative, appropriate mood and affect Medical Decision Making: For MDM please see under assessment and plan Procedure No Qualifying Data Assessment/Plan 1.??Pleural effusion??J90 Patient will increase her Lasix??to 80 mg/day for the next 3 days.?? CT scan is negative there are no PEs??no pneumonia??positive bilateral??small pleural effusions. ??Expect patient's shortness of breath??is a combination of pleural effusion as well as her recent infection with COVID??19??expect??g iven??supportive care with increase in her Lasix patient will be feeling better??within the next week to 10 days if she feels worse she is to return to the emergency department or see her primary care provider. Ordered: Lasix 40 mg oral tablet, 80 mg = 2 tab, Oral, Daily, 2 tabs daily for the next 3 days followed by 1tab daily, # 93 tab, 0 Refill(s), Pharmacy: [facility], 157, cm, 07/06/22 12:04:00 EST, Height/Length Dosing, 122.47, kg, 07/06/22 12:04:00 EST, Weight Dosing Discharge Patient, 07/06/22 14:52:00 EST, Home Independently, Constant Indicator ?? 2.??Shortness of breath??R06.02 See above Ordered: Lasix 40 mg oral tablet, 80 mg = 2 tab, Oral, Daily, 2 tabs daily for the next 3 days followed by 1tab daily, # 93 tab, 0 Refill(s), Pharmacy: [facility], 157, cm, 07/06/22 12:04:00 EST, Height/Length Dosing, 122.47, kg, 07/06/22 12:04:00 EST, Weight Dosing Discharge Patient, 07/06/22 14:52:00 EST, Home Independently, Constant Indicator ?? 3.??COVID-19??U07.1 See above Ordered: Lasix 40 mg oral tablet, 80 mg = 2 tab, Oral, Daily, 2 tabs daily for the next 3 days followed by 1tab daily, # 93 tab, 0 Refill(s), Pharmacy: [facility], 157, cm, 07/06/22 12:04:00 EST, Height/Length Dosing, 122.47, kg, 07/06/22 12:04:00 EST, Weight Dosing Discharge Patient, 07/06/22 14:52:00 EST, Home Independently, Constant Indicator ?? Patient Education Pleural Effusion COVID-19 ??? [facility] ([place]) (CUSTOM) Follow Up With When Contact Information Follow up with primary care provider Within 1 to 2 weeks Additional Instructions: Medication Reconciliation Changed furosemide (furosemide 40 mg oral tablet)1 tab Oral (given by mouth) every day. for 90 days. Refills: 3. ?? furosemide (Lasix 40 mg oral tablet)2 tab Oral (given by mouth) every day. 2 tabs daily for the next 3 days followed by 1 tab daily. Refills: 0. ?? Unchanged acetaminophen-codeine (acetaminophen-codeine 300 mg-30 mg oral tablet)2 tab Oral (given by mouth) 3times a day as needed other (see comment). as needed. Refills: 0. ?? albuterol (Ventolin HFA 90 mcg/inh inhalation aerosol)2 Puffs Inhale (breathe in) every 6 hours. use with spacer chamber as needed. Refills: 0. ?? apixaban (Eliquis 5 mg oral tablet)1 tab Oral (given by mouth) 2 times a day. Refills: 4. ?? aspirin (aspirin 81 mg oral delayed release tablet)1 tab Oral (given by mouth) every day. for 90 days. ?? atenolol (atenolol 100 mg oral tablet)1 tab Oral (given by mouth) every day. Refills: 2. ?? brimonidine ophthalmic (brimonidine 0.2% ophthalmic solution)1 Drops Right eye 2 times a day. ?? calcium-vitamin D (calcium (as carbonate)-vitamin D 600 mg-400 intl units oral tablet)1 tab Oral (given by mouth) every day. for 90 days; buys OTC DO NOT SEND RX. ?? cetirizine (cetirizine 10 mg oral tablet)1 tab Oral (given by mouth) every day. Take for 90 days. ?? cholecalciferol (Vitamin D3)1 tab Oral (given by mouth) every day. ?? dilTIAZem (DilTIAZem (Eqv-Cardizem CD) 120 mg/24 hours oral capsule, extended release)1 Capsules Oral (given by mouth) every day. Refills: 2. ?? DME RESP PAP / DEIDRE Supplies (Send to [facility])Send to [facility]. Refills: 0. ?? docusate (Colace 100 mg oral capsule)1 Capsules Oral (given by mouth) 2 times a day as needed other(see comment). as needed. ?? Durable Medical Equipment for Prescription (BD Short Pen needle 8mm x 31 g)Uses four pen needles daily Diagnosis E11.9. Refills: 6. ?? Durable Medical Equipment for Prescription (BD UF SHORT PEN NEEDLES 8MM X 31 GAUGE)SIG USE 4 PEN NEEDLES DAILY QTY 100 X 6 REFILLS. Refills: 0. ?? Durable Medical Equipment for Prescription (DME)See instructions. ?? Durable Medical Equipment for Prescription (DME)See instructions. ?? Durable Medical Equipment for Prescription (DME)See instructions. ?? Durable Medical Equipment for Prescription (Novet[employer] Solutionse 14 day sensor)to use with [employer] Solutionse reader. Refills: 2. ?? FLUoxetine (FLUoxetine 10 mg oral capsule)1 Capsules Oral (given by mouth) every morning. Refills: 2. ?? fluticasone nasal (fluticasone 50 mcg/inh nasal spray)1 Sprays Nasal (into the nose) every night atbedtime. for 30 days. Refills: 3. ?? fluticasone-salmeterol (Advair Diskus 500 mcg-50 mcg inhalation powder)1 puff Inhale (breathe in) 2times a day. Refills: 6. ?? folic acid (folic acid 1 mg oral tablet)1 tab Oral (given by mouth) every morning. ?? gabapentin (gabapentin 100 mg oral capsule)1 Capsules Oral (given by mouth) every evening. for 90 days. Refills: 0. ?? glucosamine (glucosamine 500 mg oral capsule)1 Capsules Oral (given by mouth) 2 times a day. ?? insulin aspart (NovoLOG FlexPen 100 units/mL injectable solution)22 Units Subcutaneous (under the skin) 3 times a day. Refills: 2. ?? insulin detemir (Levemir FlexTouch 100 units/mL subcutaneous solution)55 Units Subcutaneous (under the skin) 2 times a day. Refills: 3. ?? lansoprazole (lansoprazole 15 mg oral delayed release capsule)1 Capsules Oral (given by mouth) every day. for 90 days. Refills: 3. ?? levothyroxine (levothyroxine 25 mcg (0.025 mg) oral capsule)1 Capsules Oral (given by mouth) every day. Refills: 0. ?? losartan (losartan 50 mg oral tablet)1 tab Oral (given by mouth) every day. Refills: 0. ?? magnesium glycinate (magnesium glycinate 200 mg oral tablet)2 tab Oral (given by mouth) every evening for 90 Days. Refills: 0. ?? montelukast (montelukast 10 mg oral tablet)1 tab Oral (given by mouth) every day. Refills: 3. ?? multivitamin (multivitamin adult, oral tablet)1 tab Oral (given by mouth) every day. ?? nitroglycerin (nitroglycerin 0.4 mg sublingual tablet)1 tab Sublingual (dissolve under the tongue) as needed other (see comment). as needed. ?? Other Prescription (BD UF SHORT PEN NEEDLE [id number])USE 4 PEN NEEDLES DAILY. Refills: 6. ?? potassium chloride (potassium chloride 20 mEq oral tablet, extended release)1 tab Oral (given by mouth) every day as needed other (see comment). as needed with Lasix. Refills: 0. ?? pramipexole (pramipexole 0.125 mg oral tablet)1 tab Oral (given by mouth) 2 times a day. for restless legs. Refills: 0. ?? rosuvastatin (rosuvastatin 5 mg oral tablet)1 tab Oral (given by mouth) every evening. for 90 days.Refills: 3. ?? umeclidinium (Incruse Ellipta 62.5 mcg/inh inhalation powder)1 puff Inhale (breathe in) every day. Refills: 2. 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 peripheral neuropathy Dysphagia Dyspnea Elevated glucose Elevated TSH Gastroesophageal reflux disease Generalized edema History of polyp of colon Hyperlipidemia Hypertensive disorder Incisional hernia Insomnia Intrinsic asthma Iron deficiency anemia Irritable bowel syndrome Kidney disease Left shoulder pain 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 Not for resuscitation Obstructive sleep apnea Obstructive sleep apnea syndrome Osteoarthritis Periodic limb movement disorder Proteinuria Restless legs Right bundle branch block Sciatica Type 2 diabetes mellitus without complication Umbilical hernia without obstruction or gangrene Vertiginous syndrome Historical Abdominal pain Adult health examination Allergic rhinitis due to pollen Anemia Anemia due to chronic blood loss Arthropathy Cellulitis of foot Chronic fatigue syndrome Cystoid macular edema Diarrhea Disorder of ear Lumbosacral radiculitis Moderate persistent asthma Musculoskeletal symptom Neuropathy Nonproliferative retinopathy due to diabetes mellitus Obesity Palpitations Severe obesity Spasm Tachycardia Tracheobronchitis Procedure/Surgical History ???Echocardiography (procedure) (02/09/2020)???Endoscopy (08/17/2019)???Colonoscopy (10/06/2018)???Cataract surgery of right eye (04/08/2014)???Hernia repair (06/16/1995)???Foot repair (06/16/1981) Allergies MUSHROOM??(Anaphylactic reaction) No Known Medication Allergies Social History Alcohol Never Electronic Cigarette/Vaping Electronic Cigarette Use: Never. Home/Environment Lives with Alone. Living situation: Home/Independent. Nutrition/Health Caffeine intake amount: green tea. Substance Use Never Tobacco Never tobacco user Tobacco Use:. Family History Asthma: Mother, Sister and Brother. CAD - Coronary artery disease: Mother and Father. Cancer: Mother and Father. Diabetes mellitus: Mother and Brother. Heart attack: Mother. Myocardial infarction: Mother. Lab Results CBC and Differential?? LATEST RESULTS?? HISTORICAL RESULTS?? WBC?? 07/06/22 12:30?? 8.9?? 06/25/22?? 12.3 ??High?? RBC?? 07/06/22 12:30?? 3.6 ??Low?? 06/25/22?? 4.3?? Hgb?? 07/06/22 12:30?? 10.3 ??Low?? 06/25/22?? 12.1?? Hct?? 07/06/22 12:30?? 33.1 ??Low?? 06/25/22?? 38.7?? MCV?? 07/06/22 12:30?? 91.2?? 06/25/22?? 89.6?? MCH?? 07/06/22 12:30?? 28.4?? 06/25/22?? 28.0?? MCHC?? 07/06/22 12:30?? 31.1?? 06/25/22?? 31.3?? RDW-CV?? 07/06/22 12:30?? 16.6?? 06/25/22?? 16.0?? Platelets?? 07/06/22 12:30?? 279?? 06/25/22?? 294?? Segs Man?? 07/06/22 12:30?? 82 ??High?? 06/25/22?? 79 ??High?? Lymph Man?? 07/06/22 12:30?? 10 ??Low?? 06/25/22?? 14 ??Low?? Amite Man?? 07/06/22 12:30?? 6?? 06/25/22?? 6?? Eos Man?? 07/06/22 12:30?? 1?? 06/25/22?? 1?? Baso Man?? 07/06/22 12:30?? 0?? 06/25/22?? 0?? Band Man?? 07/06/22 12:30?? 0?? 06/25/22?? 0?? Abs Neut Man?? 07/06/22 12:30?? 7.3?? 06/25/22?? 9.7?? RBC Morph?? 07/06/22 12:30?? Normal?? 06/25/22?? Normal?? Immature Cells?? 07/06/22 12:30?? 1? Routine Chemistry?? LATEST RESULTS?? HISTORICAL RESULTS?? Sodium Level?? 07/06/22 12:30?? 137?? 06/25/22?? 138?? Potassium Level?? 07/06/22 12:30?? 4.4?? 06/25/22?? 4.6?? Chloride Level?? 07/06/22 12:30?? 103?? 06/25/22?? 102?? CO2?? 07/06/22 12:30?? 27?? 06/25/22?? 26?? Alk Phos?? 07/06/22 12:30?? 101?? 06/25/22?? 114?? AST?? 07/06/22 12:30?? 20?? 06/25/22?? 18?? ALT?? 07/06/22 12:30?? 25?? 06/25/22?? 25?? BUN?? 07/06/22 12:30?? 31 ??High?? 06/25/22?? 38 ??High?? Glucose Level?? 07/06/22 12:30?? 119 ??High?? 06/25/22?? 139 ??High?? Creatinine Level?? 07/06/22 12:30?? 1.61 ??High?? 06/25/22?? 1.50 ??High?? eGFR AA?? 07/06/22 12:30?? 32 ??Low?? 06/25/22?? 35 ??Low?? eGFR Non-AA?? 07/06/22 12:30?? 32 ??Low?? 06/25/22?? 35 ??Low?? Calcium Level?? 07/06/22 12:30?? 8.6?? 06/25/22?? 9.0?? Protein Total?? 07/06/22 12:30?? 6.7?? 06/25/22?? 6.9?? Albumin Level?? 07/06/22 12:30?? 2.8 ??Low?? 06/25/22?? 3.3 ??Low?? Bilirubin Total?? 07/06/22 12:30?? 0.4?? 06/25/22?? 0.5? Cardiac Isoenzymes?? LATEST RESULTS?? Troponin-I?? 07/06/22 12:30?? 9.4?? NT-proBNP?? 07/06/22 12:30?? 566 ??High? Electronically Signed on 07/06/22 02:57 PM Sue Nichols MD Emergency department Discharge instructions * Sue Nichols MD: PERFORM Event Display: ED Discharge Information Authored Date: [id number] EWA DAVID :1940 Age:82 years Sex:Female Visit Date:07/06/2022 Primary Care Physician: Alison Conley MD Discharge Instructions We would like to thank you for allowing us to assist you with your healthcare needs. The following includes patient education materials and information regarding your injury/illness. Diagnosis from Today's Visit Pleural effusion Shortness of breath COVID-19 Discharge Vitals Heart Rate??(Peripheral) 89 Heart Rate??(Monitored) 89 Respiratory Rate?? 22 Blood Pressure?? 151/63?? Height?? 61.81 in (157.000 cm) Weight??(Estimated) 270.05 lb (122.47 kg) Allergies MUSHROOM??(Anaphylactic reaction) No Known Medication Allergies What to Do Next Instructions from Your Care Team Increase??your Lasix (furosemide) to 80 mg??once per day for the next 3 days and then return to your usual 40 mg/day dosing.?? If you worsen please return to the emergency department or see primary care provider. You Need to Schedule the Following Appointments Follow Up with??Follow up with primary care provider When:??Within 1 to 2 weeks Upcoming Scheduled Appointments Friday 1:20 PM EST ?? 2022 11:30 AM EST ?? You were treated today on an emergency basis; it may be baltazar to contact your primary care provider to notify them of your visit today. You may have been referred to your regular doctor or a specialist, please follow up as instructed. If your condition worsens or you can't get in to see the doctor, contact the Emergency Department. Medications What How Much When Why Instructions Next Dose Changed furosemide (furosemide 40 mg oral tablet) 1 tab Oral (given by mouth) Every day for 90 days ?? Changed furosemide (Lasix 40 mg oral tablet) 2 tab Oral (given by mouth) Every day Pleural effusion Shortness of breath COVID-19 2 tabs daily for the next 3 days followed by 1 tab daily ?? Pickup at [facility] Unchanged acetaminophen-codeine (acetaminophen-codeine 300 mg-30 mg oral tablet) 2 tab Oral (given by mouth) 3 times a day as needed for other (see comment) as needed ?? Unchanged albuterol (Ventolin HFA 90 mcg/ inh inhalation aerosol) 2 Puffs Inhale (breathe in) Every 6 hours use with spacer chamber as needed ?? Unchanged apixaban (Eliquis 5 mg oral tablet) 1 tab Oral (given by mouth) 2 times a day Unchanged aspirin (aspirin 81 mg oral delayed release tablet) 1 tab Oral (given by mouth) Every day for 90 days ?? Unchanged atenolol (atenolol 100 mg oral tablet) 1 tab Oral (given by mouth) Every day Unchanged brimonidine ophthalmic (brimonidine 0.2% ophthalmic solution) 1 Drops Right eye 2 times a day Unchanged calcium-vitamin D (calcium (as carbonate)-vitamin D 600 mg-400 intl units oral tablet) 1 tab Oral (given by mouth) Every day for 90 days; buys OTC ??DO NOT SEND RX ?? Unchanged cetirizine (cetirizine 10 mg oral tablet) 1 tab Oral (given by mouth) Every day Take for 90 days ?? Unchanged cholecalciferol (Vitamin D3) 1 tab Oral (given by mouth) Every day Unchanged dilTIAZem (DilTIAZem (Eqv-Cardizem CD) 120 mg/ 24 hours oral capsule, extended release) 1 Capsules Oral (given by mouth) Every day Unchanged DME RESP PAP / DEIDRE Supplies (Send to [facility]) See instructions Obstructive sleep apnea syndrome Restless leg syndrome Send to [facility] ?? Unchanged docusate (Colace 100 mg oral capsule) 1 Capsules Oral (given by mouth) 2 times a day as needed for other (see comment) as needed ?? Unchanged Durable Medical Equipment for Prescription (BD Short Pen needle 8mm x 31 g) See instructions Uses four pen needles daily Diagnosis ??E11.9 ?? Unchanged Durable Medical Equipment for Prescription (BD UF SHORT PEN NEEDLES 8MM X 31 GAUGE) See instructions Type 2 diabetes mellitus without complication SIG USE 4 PEN NEEDLES DAILY QTY 100 X 6 REFILLS ?? Unchanged Durable Medical Equipment for Prescription (DME) See instructions Unchanged Durable Medical Equipment for Prescription (DME) See instructions Unchanged Durable Medical Equipment for Prescription (DME) See instructions Unchanged Durable Medical Equipment for Prescription (freestyle alexandre 14 day sensor) See instructions to use with freestyle alexandre reader ?? Unchanged FLUoxetine (FLUoxetine 10 mg oral capsule) 1 Capsules Oral (given by mouth) Every morning Unchanged fluticasone nasal (fluticasone 50 mcg/ inh nasal spray) 1 Sprays Nasal (into the nose) Every night at bedtime for 30 days ?? Unchanged fluticasone-salmeterol (Advair Diskus 500 mcg-50 mcg inhalation powder) 1 puff Inhale (breathe in) 2 times a day Unchanged folic acid (folic acid 1 mg oral tablet) 1 tab Oral (given by mouth) Every morning Unchanged gabapentin (gabapentin 100 mg oral capsule) 1 Capsules Oral (given by mouth) Every evening for 90 days ?? Unchanged glucosamine (glucosamine 500 mg oral capsule) 1 Capsules Oral (given by mouth) 2 times a day Unchanged insulin aspart (NovoLOG FlexPen 100 units/ mL injectable solution) 22 Units Subcutaneous (under the skin) 3 times a day Unchanged insulin detemir (Levemir FlexTouch 100 units/ mL subcutaneous solution) 55 Units Subcutaneous (under the skin) 2 times a day Unchanged lansoprazole (lansoprazole 15 mg oral delayed release capsule) 1 Capsules Oral (given by mouth) Every day for 90 days ?? Unchanged levothyroxine (levothyroxine 25 mcg (0.025 mg) oral capsule) 1 Capsules Oral (given by mouth) Every day Hypothyroidism Unchanged losartan (losartan 50 mg oral tablet) 1 tab Oral (given by mouth) Every day Unchanged magnesium glycinate (magnesium glycinate 200 mg oral tablet) 2 tab Oral (given by mouth) Every evening Obstructive sleep apnea syndrome Restless leg syndrome Duration: 90 Days Unchanged montelukast (montelukast 10 mg oral tablet) 1 tab Oral (given by mouth) Every day Allergy Unchanged multivitamin (multivitamin adult, oral tablet) 1 tab Oral (given by mouth) Every day Unchanged nitroglycerin (nitroglycerin 0.4 mg sublingual tablet) 1 tab Sublingual (dissolve under the tongue) As needed for other (see comment) as needed ?? Unchanged Other Prescription (BD UF SHORT PEN NEEDLE [id number]) See instructions USE 4 PEN NEEDLES DAILY ?? Unchanged potassium chloride (potassium chloride 20 mEq oral tablet, extended release) 1 tab Oral (given by mouth) Every day as needed for other (see comment) as needed with Lasix ?? Unchanged pramipexole (pramipexole 0.125 mg oral tablet) 1 tab Oral (given by mouth) 2 times a day for restless legs ?? Unchanged rosuvastatin (rosuvastatin 5 mg oral tablet) 1 tab Oral (given by mouth) Every evening Hyperlipemia for 90 days ?? Unchanged umeclidinium (Incruse Ellipta 62.5 mcg/ inh inhalation powder) 1 puff Inhale (breathe in) Every day Pharmacy Information [id number]: [address], [place] [id number] [phone] Education Materials Pleural Effusion Pleural effusion is an abnormal buildup of fluid in the layers of tissue between the lungs and the inside of the chest (pleural space). The two layers of tissue that line the lungs and the inside of the chest are called pleura. Usually, there is no air in the space between the pleura, only a thin layer of fluid. Some conditions can cause a large amount of fluid to build up, which can cause the lung to collapse if untreated. A pleural effusion is usually caused by another disease that requires treatment. What are the causes? Pleural effusion can be caused by: ? Heart failure. ? Certain infections, such as pneumonia or tuberculosis. ? Cancer. ? A blood clot in the lung (pulmonary embolism). ? Complications from surgery, such as from open heart surgery. ? Liver disease (cirrhosis). ? Kidney disease. What are the signs or symptoms? In some cases, pleural effusion may cause no symptoms. If symptoms are present, they may include: ? Shortness of breath, especially when lying down. ? Chest pain. This may get worse when taking a deep breath. ? Fever. ? Dry, long-lasting (chronic) cough. ? Hiccups. ? Rapid breathing. An underlying condition that is causing the pleural effusion (such as heart failure, pneumonia, blood clots, tuberculosis, or cancer) may also cause other symptoms. How is this diagnosed? This condition may be diagnosed based on: ? Your symptoms and medical history. ? A physical exam. ? A chest X-ray. ? A procedure to use a needle to remove fluid from the pleural space (thoracentesis). This fluid is tested. ? Other imaging studies of the chest, such as ultrasound or CT scan. How is this treated? Depending on the cause of your condition, treatment may include: ? Treating the underlying condition that is causing the effusion. When that condition improves, the effusion will also improve. Examples of treatment for underlying conditions include: ? Antibiotic medicines to treat an infection. ? Diuretics or other heart medicines to treat heart failure. ? Thoracentesis. ? Placing a thin flexible tube under your skin and into your chest to continuously drain the effusion(indwelling pleural catheter). ? Surgery to remove the outer layer of tissue from the pleural space (decortication). ? A procedure to put medicine into the chest cavity to seal the pleural space and prevent fluid buildup (pleurodesis). ? Chemotherapy and radiation therapy, if you have cancerous (malignant) pleural effusion. These treatments are typically used to treat cancer. They kill certain cells in the body. Follow these instructions at home: ? Take [id number] and prescription medicines only as told by your health care provider. ? Ask your health care provider what activities are safe for you. ? Keep track of how long you are able to do mild exercise (such as walking) before you get short of breath. Write down this information to share with your health care provider. Your ability to exerciseshould improve over time. ? Do not use any products that contain nicotine or tobacco, such as cigarettes and e-cigarettes. If you need help quitting, ask your health care provider. ? Keep all follow-up visits as told by your health care provider. This is important. Contact a health care provider if: ? The amount of time that you are able to do mild exercise: ? Decreases. ? Does not improve with time. ? You have a fever. Get help right away if: ? You are short of breath. ? You develop chest pain. ? You develop a new cough. Summary ? Pleural effusion is an abnormal buildup of fluid in the layers of tissue between the lungs and the inside of the chest. ? Pleural effusion can have many causes, including heart failure, pulmonary embolism, infections, or cancer. ? Symptoms of pleural effusion can include shortness of breath, chest pain, fever, long-lasting (chronic) cough, hiccups, or rapid breathing. ? Diagnosis often involves making images of the chest (such as with ultrasound or X-ray) and removingfluid (thoracentesis) to send for testing. ? Treatment for pleural effusion depends on what underlying condition is causing it. This information is not intended to replace advice given to you by your health care provider. Make sure you discuss any questions you have with your health care provider. Document Revised: 09/11/2021 Document Reviewed: 02/01/2021 [employer] Patient Education ?? 2021 [employer]. What to do if you are sick with coronavirus disease 2019 (COVID-19) ? If you are sick with COVID-19 or suspect you are infected with the virus that causes COVID-19, follow the steps below to help prevent the disease from spreading to people in your home and communityStay home except to get medical care You should restrict activities outside your home, except for getting medical care. Do not go to work, school, or public areas. Avoid using public transportation, ride-sharing, or taxis. ? Separate yourself from other people and animals in your home People: As much as possible, you should stay in a specific room and away from other people in your home. Also, you should use a separate bathroom, if available. ? Animals: Do not handle pets or other animals while sick. See COVID-19 and Animals for more information. ? Call ahead before visiting your doctor If you have a medical appointment, call the healthcare provider and tell them that you have or may have COVID-19. This will help the healthcare provider???s office take steps to keep other people from getting infected or exposed. ? Wear a facemask You should wear a facemask when you are around other people (e.g., sharing a room or vehicle) or pets and before you enter a healthcare provider???s office. If you are not able to wear a facemask (for example, because it causes trouble breathing), then people who live with you should not stay in the same room with you, or they should wear a facemask if they enter your room. ? Cover your coughs and sneezes Cover your mouth and nose with a tissue when you cough or sneeze. Throw used tissues in a lined trash can; immediately wash your hands with soap and water for at least 20 seconds or clean your hands with an alcohol-based hand steel turner that contains at least 60-95% alcohol covering all surfaces of your hands and rubbing them together until they feel dry. Soap and water should be used preferentially if hands are visibly dirty. ? Avoid sharing personal household items You should not share dishes, drinking glasses, cups, eating utensils, towels, or bedding with otherpeople or pets in your home. After using these items, they should be washed thoroughly with soap and water. ? Clean your hands often Wash your hands often with soap and water for at least 20 seconds. If soap and water are not available, clean your hands with an alcohol-based hand steel turner that contains at least 60% alcohol, covering all surfaces of your hands and rubbing them together until they feel dry. Soap and water should be used preferentially if hands are visibly dirty. Avoid touching your eyes, nose, and mouth with unwashed hands. ? Clean all ???high-touch?? surfaces every day High touch surfaces include counters, tabletops, doorknobs, bathroom fixtures, toilets, phones, keyboards, tablets, and bedside tables. Also, clean any surfaces that may have blood, stool, or body fluids on them. Use a household cleaning spray or wipe, according to the label instructions. Labels contain instructions for safe and effective use of the cleaning product including precautions you should take when applying the product, such as wearing gloves and making sure you have good ventilation during use of the product. ? Monitor your symptoms Seek prompt medical attention if your illness is worsening (e.g., difficulty breathing). Before seeking care, call your healthcare provider and tell them that you have, or are being evaluated for, COVID-19. Put on a facemask before you enter the facility. These steps will help the healthcare provider???s office to keep other people in the office or waiting room from getting infected or exposed. ? Ask your healthcare provider to call the local or state health department. Persons who are placed under active monitoring or facilitated self-monitoring should follow instructions provided by their local health department or occupational health professionals, as appropriate. ? If you have a medical emergency and need to call 911, notify the dispatch personnel that you have, or are being evaluated for COVID-19. If possible, put on a facemask before emergency medical services arrive. ? Discontinuing home isolation Patients with confirmed COVID-19 should remain under home isolation precautions until the risk of secondary transmission to others is thought to be low. The decision to discontinue home isolation precautions should be made on a [id number] basis, in consultation with healthcare providers and [facility] and [facility] health departments. ? [id number] 08/19/2019 Tests Performed Lab Test Name Test Result Date/Time WBC 8.9 x10^3/mcL 07/06/2022 12:30 EST RBC 3.6 x10^6/mcL 07/06/2022 12:30 EST Hgb 10.3 g/dL 07/06/2022 12:30 EST Hct 33.1 % 07/06/2022 12:30 EST MCV 91.2 07/06/2022 12:30 EST MCH 28.4 pg 07/06/2022 12:30 EST MCHC 31.1 g/dL 07/06/2022 12:30 EST RDW-CV 16.6 % 07/06/2022 12:30 EST Platelets 279 x10^3/mcL 07/06/2022 12:30 EST Segs Man 82 % 07/06/2022 12:30 EST Lymph Man 10 % 07/06/2022 12:30 EST Amite Man 6 % 07/06/2022 12:30 EST Eos Man 1 % 07/06/2022 12:30 EST Baso Man 0 % 07/06/2022 12:30 EST Band Man 0 % 07/06/2022 12:30 EST Abs Neut Man 7.3 x10^3/mcL 07/06/2022 12:30 EST RBC Morph Normal 07/06/2022 12:30 EST Immature Cells 1 07/06/2022 12:30 EST Sodium Level 137 mmol/L 07/06/2022 12:30 EST Potassium Level 4.4 mmol/L 07/06/2022 12:30 EST Chloride Level 103 mmol/L 07/06/2022 12:30 EST CO2 27 mmol/L 07/06/2022 12:30 EST Alk Phos 101 unit/L 07/06/2022 12:30 EST AST 20 unit/L 07/06/2022 12:30 EST ALT 25 unit/L 07/06/2022 12:30 EST BUN 31 mg/dL 07/06/2022 12:30 EST Glucose Level 119 mg/dL 07/06/2022 12:30 EST Creatinine Level 1.61 mg/dL 07/06/2022 12:30 EST eGFR AA 32 07/06/2022 12:30 EST eGFR Non-AA 32 07/06/2022 12:30 EST Calcium Level 8.6 mg/dL 07/06/2022 12:30 EST Protein Total 6.7 g/dL 07/06/2022 12:30 EST Albumin Level 2.8 g/dL 07/06/2022 12:30 EST Bilirubin Total 0.4 mg/dL 07/06/2022 12:30 EST Troponin-I 9.4 pg/mL 07/06/2022 12:30 EST NT-proBNP 566 pg/mL 07/06/2022 12:30 EST Patient/Special Education Science Teacher Signature Patient Name:EWA DAVID Urszula I have received this information and my questions have been answered. Patient/Special Education Science Teacher Name: Patient/Special Education Science Teacher Signature: Relationship to Patient: Witness Name/Signature: Date: Electronically Signed on: 07/06/2022 14:54 ESTSigned by:AMS Discharge summary * Maria Dolores Hurt: PERFORM Event Display: Discharge Note Authored Date: * Maria Dolores Hurt: PERFORM Event Display: Discharge Note Authored Date: Diagnosis: 1. Pleural effusion Comment: Diagnosis: 2. Shortness of breath Comment: Diagnosis: 3. COVID-19 Comment: Diagnosis: Shortness of breath Comment: Electronically Signed on 07/06/22 04:17 PM Maria Dolores Hurt Patient Care team information Personnel Name: Alison Conley MD Address: Address: [place] [address]- [place]
--- OUTSIDE RECORDS SUMMARY | 2022-08-23 14:08 | XMS_ITS | Continuity of Care Document ---
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 Name Role Phone Alison Conley Primary Care Physician Encounter [facility] Date(s): 08/01/22 - 08/01/[address] [phone] Discharge Disposition: Home or Self Care Attending [...] Recorded tetanus/diphth/pertuss (Tdap) adult/adol 11/05/10 Recorded Novel [id number], all formulation 06/21/09 Recorded zoster vaccine live 10/29/07 Recorded pneumococcal 23-polyvalent vaccine 09/08/06 Record ed pneumococcal 23-polyvalent vaccine 03/16/97 Record ed tetanus-diphth toxoids (Td) adult/adol 04/16/01 Re corded Medications acetaminophen-codeine 300 mg-30 mg oral tablet 2 tab, Oral, TID, PRN other (see comment), as needed, # 30 tab, 0 Refill(s), Pharmacy: [facility], 157.48, cm, 12/29/21 14:21:00 EDT, Height/Length Dosing, 117.93, kg, 12/29/21 14:21:00 EDT, Weight Dosing Start Date: 05/20/22 Status: Ordered Advair Diskus 500 mcg-50 mcg inhalation powder 1 puff, Inhale, BID, # 60 EA, 6 Refill(s), Pharmacy: [facility] #58, 157.48, cm, 12/29/21 14:21:00 EDT, Height/Length Dosing, 117.93, kg, 12/29/21 14:21:00 EDT, Weight Dosing Start Date: 04/30/22 Status: Ordered aspirin 81 mg oral delayed release tablet 1 tab, Oral, Daily, for 90 days, 0 Refill(s) Start Date: 10/31/21 Status: Ordered atenolol 100 mg oral tablet 1 tab, Oral, Daily, # 90 tab, 2 Refill(s), Pharmacy: [facility] #58, 157.48, cm, 12/29/21 14:21:00 EDT, Height/Length Dosing, 117.93, kg, 12/29/21 14:21:00 EDT, Weight Dosing Start Date: 06/11/22 Status: Ordered BD Short Pen needle 8mm x 31 g BD Short Pen needle 8mm x 31 g, Uses four pen needles daily Diagnosis E11.9, Supply, See instructions, # 100 EA, 6 Refill(s), Pharmacy: [facility] #58 Start Date: 05/02/22 Status: Ordered BD UF SHORT PEN NEEDLE [id number] BD UF SHORT PEN NEEDLE [id number], See Instructions, USE 4 PEN NEEDLES DAILY, # 100 EA, 6 Refill(s), Pharmacy: [facility] #58, 157.48, cm, 12/29/21 14:21:00 EDT, Height/Length Dosing, 117.93, kg, 12/29/21 14:21:00 EDT, Weight Dosing Start Date: 05/08/22 Status: Ordered BD UF SHORT PEN NEEDLES 8MM X 31 GAUGE BD UF SHORT PEN NEEDLES 8MM X 31 GAUGE, SIG USE 4 PEN NEEDLES DAILY QTY 100 X 6 REFILLS, Supply, See instructions, # 1 EA, 0 Refill(s), Pharmacy: [facility] #58 Start Date: 11/06/21 Status: Ordered brimonidine 0.2% ophthalmic solution 1 drops, Eye-Right, BID Start Date: 12/05/21 Status: Ordered calcium (as carbonate)-vitamin D 600 mg-400 intl units oral tablet 1 tab, Oral, Daily, for 90 days; buys OTC DO NOT SEND RX Start Date: 10/31/21 Status: Ordered cetirizine 10 mg oral tablet 10 mg = 1 tab, Oral, Daily, Take for 90 days, # 90 tab, 3 Refill(s), Pharmacy: [facility] #58, 157, cm, 07/06/22 12:04:00 EST, Height/Length Dosing, 122.47, kg, 07/06/22 12:04:00 EST, Weight Dosing Start Date: 07/31/22 Status: Ordered Colace 100 mg oral capsule 1 cap, Oral, BID, PRN other (see comment), as needed, 0 Refill(s) Start Date: 10/31/21 Status: Ordered DilTIAZem (Eqv-Cardizem CD) 120 mg/24 hours oral capsule, extended release 1 cap, Oral, Daily, # 90 cap, 2 Refill(s), Pharmacy: [facility] #58, 157.48, cm, 12/29/21 14:21:00 EDT, Height/Length Dosing, 117.93, kg, 12/29/21 14:21:00 EDT, Weight Dosing Start Date: 04/02/22 Status: Ordered DME Supply, See instructions, # 1 EA, 0 Refill(s) Start Date: 10/31/21 Status: Ordered DME Supply, See instructions, # 1 EA, 0 Refill(s) Start Date: 10/31/21 Status: Ordered DME Supply, See instructions, # 1 EA, 0 Refill(s) Start Date: 10/31/21 Status: Ordered doxycycline hyclate 100 mg oral capsule 100 mg = 1 cap, Oral, BID, # 20 cap, 0 Refill(s), Pharmacy: [facility] #58, 157, cm, 07/06/2311:04:00 EST, Height/Length Dosing, 122.47, kg, 07/06/22 12:04:00 EST, Weight Dosing Start Date: 07/22/22 Stop Date: 08/01/22 Status: Ordered Eliquis 5 mg oral tablet 1 tab, Oral, BID, # 60 tab, 4 Refill(s), Pharmacy: [facility] #58, 157.48, cm, 12/29/21 14:21:00 EDT, Height/Length Dosing, 117.93, kg, 12/29/21 14:21:00 EDT, Weight Dosing Start Date: 05/02/22 Status: Ordered FLUoxetine 10 mg oral capsule 1 cap, Oral, every morning, # 90 cap, 2 Refill(s), Pharmacy: [facility] #58, 157.48, cm, 12/29/21 14:21:00 EDT, Height/Length Dosing, 117.93, kg, 12/29/21 14:21:00 EDT, Weight Dosing Start Date: 04/02/22 Status: Ordered fluticasone 50 mcg/inh nasal spray 50 mcg 1 sprays, Nasal, every night at bedtime, for 30 days, # 15.8 mL, 3 Refill(s), Pharmacy: [facility] #58, 157.48, cm, 12/29/21 14:21:00 EDT, Height/Length Dosing, 117.93, kg, 12/29/21 14:21:00 EDT, Weight Dosing Start Date: 01/07/22 Status: Ordered folic acid 1 mg oral tablet 1 tab, Oral, every morning, 0 Refill(s) Start Date: 10/31/21 Status: Ordered freestyle alexandre 14 day sensor freestyle alexandre 14 day sensor, to use with freestyle alexandre reader, Supply, See instructions, # 1 EA, 2 Refill(s), Pharmacy: [facility]58 Start Date: 06/20/22 Status: Ordered furosemide 40 mg oral tablet 40 mg = 1 tab, Oral, Daily, for 90 days, # 90 tab, 3 Refill(s), Pharmacy: [facility] #58, 157.48, cm, 12/29/21 14:21:00 EDT, Height/Length Dosing, 117.93, kg, 12/29/21 14:21:00 EDT, Weight Dosing Start Date: 01/22/22 Status: Ordered gabapentin 100 mg oral capsule 100 mg = 1 cap, Oral, every evening, for 90 days, # 90 cap, 0 Refill(s), Pharmacy: [facility]58, 157.48, cm, 12/29/21 14:21:00 EDT, Height/Length Dosing, 117.93, kg, 12/29/21 14:21:00 EDT, Weight Dosing Start Date: 07/02/22 Status: Ordered glucosamine 500 mg oral capsule 500 mg = 1 cap, Oral, BID, 0 Refill(s) Start Date: 10/31/21 Status: Ordered lansoprazole 15 mg oral delayed release capsule 15 mg = 1 cap, Oral, Daily, for 90 days, # 90 cap, 3 Refill(s), Pharmacy: [facility] #58, 157, cm, 07/06/22 12:04:00 EST, Height/Length Dosing, 122.47, kg, 07/06/22 12:04:00 EST, Weight Dosing Start Date: 07/08/22 Status: Ordered Levemir FlexTouch 100 units/mL subcutaneous solution 55 units =, Subcutaneous, BID, # 45 mL, 3 Refill(s), Pharmacy: [facility] #58, 157.48, cm, 12/29/21 14:21:00 EDT, Height/Length Dosing, 117.93, kg, 12/29/21 14:21:00 EDT, Weight Dosing Start Date: 06/24/22 Status: Ordered levothyroxine 25 mcg (0.025 mg) oral capsule 25 mcg = 1 cap, Oral, Daily, # 90 cap, 0 Refill(s), Pharmacy: [facility] #58, 157.48, cm, 12/29/21 14:21:00 EDT, Height/Length Dosing, 117.93, kg, 12/29/21 14:21:00 EDT, Weight Dosing Start Date: 05/27/22 Status: Ordered losartan 50 mg oral tablet 50 mg = 1 tab, Oral, Daily, # 90 tab, 0 Refill(s) Start Date: 10/31/21 Status: Ordered magnesium glycinate 200 mg oral tablet 400 mg = 2 tab, Oral, every evening, # 180 tab, 0 Refill(s), Pharmacy: [facility] #58 Start Date: 12/06/21 Stop Date: 03/06/22 Status: Ordered montelukast 10 mg oral tablet 10 mg = 1 tab, Oral, Daily, # 90 tab, 3 Refill(s), Pharmacy: [facility] #58, 157.48, cm, 12/29/21 14:21:00 EDT, Height/Length Dosing, 117.93, kg, 12/29/21 14:21:00 EDT, Weight Dosing Start Date: 06/24/22 Status: Ordered Mucus Relief ER 600 mg oral tablet, extended release 600 mg = 1 tab, Oral, BID, for 10 days, # 20 tab, 0 Refill(s), Pharmacy: [facility] #58, 157,cm, 07/06/22 12:04:00 EST, Height/Length Dosing, 122.47, kg, 07/06/22 12:04:00 EST, Weight Dosing Start Date: 07/31/22 Status: Ordered multivitamin adult, oral tablet 1 tab, Oral, Daily, 0 Refill(s) Start Date: 10/31/21 Status: Ordered nitroglycerin 0.4 mg sublingual tablet 1 tab, SL, PRN other (see comment), as needed, 0 Refill(s) Start Date: 10/31/21 Status: Ordered NovoLOG FlexPen 100 units/mL injectable solution 22 units =, Subcutaneous, TID, # 15 mL, 2 Refill(s), Pharmacy: [facility] #58, 157.48, cm, 12/29/21 14:21:00 EDT, Height/Length Dosing, 117.93, kg, 12/29/21 14:21:00 EDT, Weight Dosing Start Date: 02/05/22 Status: Ordered potassium chloride 20 mEq oral tablet, extended release 20 mEq = 1 tab, Oral, Daily, PRN other (see comment), as needed with Lasix, # 90 tab, 0 Refill(s), Pharmacy: [facility] #58, 157.48, cm, 12/29/21 14:21:00 EDT, Height/Length Dosing, 117.93, kg,12/29/21 14:21:00 EDT, Weight Dosing Start Date: 06/24/22 Status: Ordered pramipexole 0.125 mg oral tablet 1 tab, Oral, BID, # 60 tab, 3 Refill(s), Pharmacy: [facility] #58, 157, cm, 07/06/22 12:04:00EST, Height/Length Dosing, 122.47, kg, 07/06/22 12:04:00 EST, Weight Dosing Start Date: 07/08/22 Status: Ordered rosuvastatin 5 mg oral tablet 5 mg = 1 tab, Oral, every evening, for 90 days, # 90 tab, 3 Refill(s), Pharmacy: [facility]58 Start Date: 11/19/21 Status: Ordered Send to [place] Send to [place], Send to [place], Supply, See instructions, # 1 EA, 0 Refill(s) Start Date: 12/06/21 Status: Ordered Ventolin HFA 90 mcg/inh inhalation aerosol 180 mcg 2 puffs, Inhale, every 6 hr, use with spacer chamber as needed, # 18 g, 3 Refill(s), Pharmacy: [facility] #58, 157, cm, 07/06/22 12:04:00 EST, Height/Length Dosing, 122.47, kg, 07/06/2311:04:00 EST, Weight Dosing Start Date: 07/31/22 Status: Ordered Vitamin D3 1 tab, Oral, [...] Confirmed 08/14/20 Active Cerebrovascular disease Confirmed Active [place] 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 edema Confirmed 10/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 Sex Female Patient Care team information Care Team Personnel Name: Alison Conley MD Position: Physician Member Role: Primary Care Physician Address: Address: [place] [address]- Care Team Related Persons Name: OLAF DAVID Address: Home Name: EDDIE PERRY Address: Home
--- OUTSIDE RECORDS SUMMARY | 2022-08-23 14:08 | XMS_ITS | Continuity of Care Document ---
Author Name Unknown Organization 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 Name Role Phone Alison Conley Primary Care Physician Encounter [facility] Date(s): 05/16/22 - 05/16/[address] [phone] Discharge Disposition: Home or Self Care Attending [...] Recorded tetanus/diphth/pertuss (Tdap) adult/adol 11/05/10 Recorded Novel [id number], all formulation 06/21/09 Recorded zoster vaccine live 10/29/07 Recorded pneumococcal 23-polyvalent vaccine 09/08/06 Record ed pneumococcal 23-polyvalent vaccine 03/16/97 Record ed tetanus-diphth toxoids (Td) adult/adol 04/16/01 Re corded Medications acetaminophen-codeine 300 mg-30 mg oral tablet 2 tab, Oral, TID, PRN other (see comment), as needed, # 30 tab, 0 Refill(s), Pharmacy: [facility] Start Date: 11/27/21 Status: Ordered Advair Diskus 500 mcg-50 mcg inhalation powder 1 puff, Inhale, BID, # 60 EA, 6 Refill(s), Pharmacy: [email or web address] #58, 157.48, cm, 12/29/21 14:21:00 EDT, Height/Length Dosing, 117.93, kg, 12/29/21 14:21:00 EDT, Weight Dosing Start Date: 04/30/22 Status: Ordered aspirin 81 mg oral delayed release tablet 1 tab, Oral, Daily, for 90 days, 0 Refill(s) Start Date: 10/31/21 Status: Ordered atenolol 100 mg oral tablet 100 mg = 1 tab, Oral, Daily, for 90 days, # 90 tab, 1 Refill(s), Pharmacy: [email or web address] #58 Start Date: 12/13/21 Status: Ordered BD Short Pen needle 8mm x 31 g BD Short Pen needle 8mm x 31 g, Uses four pen needles daily Diagnosis E11.9, Supply, See instructions, # 100 EA, 6 Refill(s), Pharmacy: [email or web address]58 Start Date: 05/02/22 Status: Ordered BD UF SHORT PEN NEEDLE [id number] BD UF SHORT PEN NEEDLE [id number], See Instructions, USE 4 PEN NEEDLES DAILY, # 100 EA, 6 Refill(s), Pharmacy: [email or web address] #58, 157.48, cm, 12/29/21 14:21:00 EDT, Height/Length Dosing, 117.93, kg, 12/29/21 14:21:00 EDT, Weight Dosing Start Date: 05/08/22 Status: Ordered BD UF SHORT PEN NEEDLES 8MM X 31 GAUGE BD UF SHORT PEN NEEDLES 8MM X 31 GAUGE, SIG USE 4 PEN NEEDLES DAILY QTY 100 X 6 REFILLS, Supply, See instructions, # 1 EA, 0 Refill(s), Pharmacy: [email or web address]58 Start Date: 11/06/21 Status: Ordered brimonidine [...] Daily, # 90 cap, 2 Refill(s), Pharmacy: [email or web address] #58, 157.48, cm, 12/29/21 14:21:00 EDT, Height/Length [...] BID, # 60 tab, 4 Refill(s), Pharmacy: [email or web address] #58, 157.48, cm, 12/29/21 14:21:00 EDT, Height/Length Dosing, 117.93, kg, 12/29/21 14:21:00 EDT, Weight Dosing Start Date: 05/02/22 Status: Ordered FLUoxetine 10 mg oral capsule 1 cap, Oral, every morning, # 90 cap, 2 Refill(s), Pharmacy: [email or web address] #58, 157.48, cm, 12/29/21 14:21:00 EDT, Height/Length Dosing, 117.93, kg, 12/29/21 14:21:00 EDT, Weight Dosing Start Date: 04/02/22 Status: Ordered fluticasone 50 mcg/inh nasal spray 50 mcg 1 sprays, Nasal, every night at bedtime, for 30 days, # 15.8 mL, 3 Refill(s), Pharmacy: [facility] #58, 157.48, cm, 12/29/21 14:21:00 EDT, Height/Length Dosing, 117.93, kg, 12/29/21 14:21:00 EDT, Weight Dosing Start Date: 01/07/22 Status: Ordered folic acid 1 mg oral tablet 1 tab, Oral, every morning, 0 Refill(s) Start Date: 10/31/21 Status: Ordered furosemide 40 mg oral tablet 40 mg = 1 tab, Oral, Daily, for 90 days, # 90 tab, 3 Refill(s), Pharmacy: [email or web address]58, 157.48, cm, 12/29/21 14:21:00 EDT, Height/Length Dosing, 117.93, kg, 12/29/21 14:21:00 EDT, Weight Dosing Start Date: 01/22/22 Status: Ordered gabapentin 100 mg oral capsule 100 mg = 1 cap, Oral, every evening, for 90 days, # 90 cap, 0 Refill(s), Pharmacy: [email or web address], 157.48, cm, 12/29/21 14:21:00 EDT, Height/Length Dosing, [...] BID, # 45 mL, 3 Refill(s), Pharmacy: [email or web address]58, 157.48, cm, 12/29/21 14:21:00 EDT, Height/Length Dosing, 117.93, kg, 12/29/21 14:21:00 EDT, Weight Dosing Start Date: 01/07/22 Status: Ordered losartan 50 mg oral tablet 50 mg = 1 tab, Oral, Daily, # 90 tab, 0 Refill(s) Start Date: 10/31/21 Status: Ordered magnesium glycinate 200 mg oral tablet 400 mg = 2 tab, Oral, every evening, # 180 tab, 0 Refill(s), Pharmacy: [email or web address]58 Start Date: 12/06/21 Stop Date: 03/06/22 Status: Ordered montelukast 10 mg oral tablet 10 mg = 1 tab, Oral, Daily, # 90 tab, 1 Refill(s), Pharmacy: [facility]58, 157.48, cm, 12/29/21 14:21:00 EDT, Height/Length [...] TID, # 15 mL, 2 Refill(s), Pharmacy: [email or web address]58, 157.48, cm, 12/29/21 14:21:00 EDT, Height/Length Dosing, 117.93, kg, 12/29/21 14:21:00 EDT, Weight Dosing Start Date: 02/05/22 Status: Ordered potassium chloride 20 mEq oral tablet, extended release 20 mEq = 1 tab, Oral, Daily, PRN other (see comment), as needed with Lasix, # 90 tab, 0 Refill(s), Pharmacy: [email or web address]58, 157.48, cm, 12/29/21 14:21:00 EDT, Height/Length Dosing, 117.93, kg,12/29/21 14:21:00 EDT, Weight Dosing Start Date: 03/08/22 Status: Ordered pramipexole 0.125 mg oral tablet 1 tab, Oral, BID, for restless legs, 0 Refill(s) Start Date: 10/31/21 Status: Ordered rosuvastatin 5 mg oral tablet 5 mg = 1 tab, Oral, every evening, for 90 days, # 90 tab, 3 Refill(s), Pharmacy: [email or web address]58 Start Date: 11/19/21 Status: Ordered Send to [facility] Send to [facility], Send to [facility], Supply, See instructions, # 1 EA, 0 Refill(s) Start Date: 12/06/21 Status: Ordered Ventolin HFA 90 mcg/inh inhalation aerosol 180 mcg 2 puffs, Inhale, every 6 hr, use with spacer chamber as needed, # 18 g, 0 Refill(s), Pharmacy: [email or web address]58, 157.48, cm, 12/29/21 14:21:00 EDT, Height/Length [...] Confirmed 08/14/20 Active Cerebrovascular disease Confirmed Active [place] 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 [...] tendon repair Results Laboratory List Name Date TSH w/ Rflx to Free T4 05/16/22 Free T4 05/16/22 Most recent to oldest [Reference Range]: 1 T4 Free [0.76-1.46 ng/dL] 0.98 ng/dL (05/16/22 11:20 AM) TSH [0.358-3.740 mcIntlUnit/mL] 7.131 mc IntlUnit/mL *HI* (05/16/22 11:20 AM) Social History Social History Type Response Tobacco Never tobacco user T obacco Use:. Sex Female Patient Care team information Personnel Name: Alison Conley MD Address: Address: [place] [address]- [place]
--- OUTSIDE RECORDS SUMMARY | 2022-08-23 14:08 | XMS_ITS | Continuity of Care Document ---
Author Name Unknown Organization [facility] Address [address] [place] [address] Care Team Providers Care Academic Records Specialist Name Role Phone Alison Conley Primary Care Physician Encounter [facility]_[place] Date(s): 06/25/22 - 06/25/[address] [id number] Discharge Disposition: Home or Self Care Attending Physician: Venice Meyer Admitting Physician: Venice Meyer Referring Physician: Venice Meyer Allergies, Adverse Reactions, Alerts No Known Medication [...] Recorded tetanus/diphth/pertuss (Tdap) adult/adol 11/05/10 Recorded Novel [id number], all formulation 06/21/09 Recorded zoster vaccine live 10/29/07 Recorded pneumococcal 23-polyvalent vaccine 09/08/06 Record ed pneumococcal 23-polyvalent vaccine 03/16/97 Record ed tetanus-diphth toxoids (Td) adult/adol 04/16/01 Re corded Medications acetaminophen-codeine 300 mg-30 mg oral tablet 2 tab, Oral, TID, PRN other (see comment), as needed, # 30 tab, 0 Refill(s), Pharmacy: [facility] #58, 157.48, cm, 12/29/21 14:21:00 EDT, Height/Length Dosing, 117.93, kg, 12/29/21 14:21:00 EDT, Weight Dosing Start Date: 05/20/22 Status: Ordered Advair Diskus 500 mcg-50 mcg inhalation powder 1 puff, Inhale, BID, # 60 EA, 6 Refill(s), Pharmacy: [facility] #58, 157.48, cm, 12/29/21 14:21:00 EDT, Height/Length Dosing, 117.93, kg, 12/29/21 14:21:00 EDT, Weight Dosing Start Date: 04/30/22 Status: Ordered aspirin 81 mg oral delayed release tablet 1 tab, Oral, Daily, for 90 days, 0 Refill(s) Start Date: 10/31/21 Status: Ordered atenolol 100 mg oral tablet 1 tab, Oral, Daily, # 90 tab, 2 Refill(s), Pharmacy: [facility] #58, 157.48, cm, 12/29/21 14:21:00 EDT, Height/Length Dosing, 117.93, kg, 12/29/21 14:21:00 EDT, Weight Dosing Start Date: 06/11/22 Status: Ordered BD Short Pen needle 8mm x 31 g BD Short Pen needle 8mm x 31 g, Uses four pen needles daily Diagnosis E11.9, Supply, See instructions, # 100 EA, 6 Refill(s), Pharmacy: [facility] #58 Start Date: 05/02/22 Status: Ordered BD UF SHORT PEN NEEDLE [id number] BD UF SHORT PEN NEEDLE [id number], See Instructions, USE 4 PEN NEEDLES DAILY, # 100 EA, 6 Refill(s), Pharmacy: [facility] #58, 157.48, cm, 12/29/21 14:21:00 EDT, Height/Length Dosing, 117.93, kg, 12/29/21 14:21:00 EDT, Weight Dosing Start Date: 05/08/22 Status: Ordered BD UF SHORT PEN NEEDLES 8MM X 31 GAUGE BD UF SHORT PEN NEEDLES 8MM X 31 GAUGE, SIG USE 4 PEN NEEDLES DAILY QTY 100 X 6 REFILLS, Supply, See instructions, # 1 EA, 0 Refill(s), Pharmacy: [facility] #58 Start Date: 11/06/21 Status: Ordered brimonidine [...] Daily, # 90 cap, 2 Refill(s), Pharmacy: [facility] #58, 157.48, cm, 12/29/21 14:21:00 EDT, Height/Length [...] BID, # 60 tab, 4 Refill(s), Pharmacy: [facility] #58, 157.48, cm, 12/29/21 14:21:00 EDT, Height/Length Dosing, 117.93, kg, 12/29/21 14:21:00 EDT, Weight Dosing Start Date: 05/02/22 Status: Ordered FLUoxetine 10 mg oral capsule 1 cap, Oral, every morning, # 90 cap, 2 Refill(s), Pharmacy: [facility] #58, 157.48, cm, 12/29/21 14:21:00 EDT, Height/Length Dosing, 117.93, kg, 12/29/21 14:21:00 EDT, Weight Dosing Start Date: 04/02/22 Status: Ordered fluticasone 50 mcg/inh nasal spray 50 mcg 1 sprays, Nasal, every night at bedtime, for 30 days, # 15.8 mL, 3 Refill(s), Pharmacy: [facility] #58, 157.48, cm, 12/29/21 14:21:00 EDT, Height/Length Dosing, 117.93, kg, 12/29/21 14:21:00 EDT, Weight Dosing Start Date: 01/07/22 Status: Ordered folic acid 1 mg oral tablet 1 tab, Oral, every morning, 0 Refill(s) Start Date: 10/31/21 Status: Ordered freestyle alexandre 14 day sensor freestyle alexandre 14 day sensor, to use with freestyle alexandre reader, Supply, See instructions, # 1 EA, 2 Refill(s), Pharmacy: [facility] #58 Start Date: 06/20/22 Status: Ordered furosemide 40 mg oral tablet 40 mg = 1 tab, Oral, Daily, for 90 days, # 90 tab, 3 Refill(s), Pharmacy: [facility] #58, 157.48, cm, 12/29/21 14:21:00 EDT, Height/Length Dosing, 117.93, kg, 12/29/21 14:21:00 EDT, Weight Dosing Start Date: 01/22/22 Status: Ordered gabapentin 100 mg oral capsule 100 mg = 1 cap, Oral, every evening, for 90 days, # 90 cap, 0 Refill(s), Pharmacy: [facility]58, 157.48, cm, 12/29/21 14:21:00 EDT, Height/Length Dosing, 117.93, kg, 12/29/21 14:21:00 EDT, Weight Dosing Start Date: 04/05/22 Status: Ordered glucosamine 500 mg oral capsule 500 mg = 1 cap, Oral, BID, 0 Refill(s) Start Date: 10/31/21 Status: Ordered Incruse Ellipta 62.5 mcg/inh inhalation powder 1 puff, Inhale, Daily, # 1 EA, 2 Refill(s), Pharmacy: [facility] #58, 157.48, cm, 12/29/21 14:21:00 EDT, Height/Length Dosing, 117.93, kg, 12/29/21 14:21:00 EDT, Weight Dosing Start Date: 05/20/22 Status: Ordered lansoprazole 15 mg oral delayed release capsule 1 cap, Oral, Daily, for 90 days, 0 Refill(s) Start Date: 10/31/21 Status: Ordered Levemir FlexTouch 100 units/mL subcutaneous solution 55 units =, Subcutaneous, BID, # 45 mL, 3 Refill(s), Pharmacy: [facility] #58, 157.48, cm, 12/29/21 14:21:00 EDT, Height/Length Dosing, 117.93, kg, 12/29/21 14:21:00 EDT, Weight Dosing Start Date: 06/24/22 Status: Ordered levothyroxine 25 mcg (0.025 mg) oral capsule 25 mcg = 1 cap, Oral, Daily, # 90 cap, 0 Refill(s), Pharmacy: [facility] #58, 157.48, cm, 12/29/21 14:21:00 EDT, Height/Length Dosing, 117.93, kg, 12/29/21 14:21:00 EDT, Weight Dosing Start Date: 05/27/22 Status: Ordered losartan 50 mg oral tablet 50 mg = 1 tab, Oral, Daily, # 90 tab, 0 Refill(s) Start Date: 10/31/21 Status: Ordered magnesium glycinate 200 mg oral tablet 400 mg = 2 tab, Oral, every evening, # 180 tab, 0 Refill(s), Pharmacy: [facility] #58 Start Date: 12/06/21 Stop Date: 03/06/22 Status: Ordered montelukast 10 mg oral tablet 10 mg = 1 tab, Oral, Daily, # 90 tab, 3 Refill(s), Pharmacy: [facility] #58, 157.48, cm, 12/29/21 14:21:00 EDT, Height/Length [...] TID, # 15 mL, 2 Refill(s), Pharmacy: [facility] #58, 157.48, cm, 12/29/21 14:21:00 EDT, Height/Length Dosing, 117.93, kg, 12/29/21 14:21:00 EDT, Weight Dosing Start Date: 02/05/22 Status: Ordered potassium chloride 20 mEq oral tablet, extended release 20 mEq = 1 tab, Oral, Daily, PRN other (see comment), as needed with Lasix, # 90 tab, 0 Refill(s), Pharmacy: [facility] #58, 157.48, cm, 12/29/21 14:21:00 EDT, Height/Length Dosing, 117.93, kg,12/29/21 14:21:00 EDT, Weight Dosing Start Date: 06/24/22 Status: Ordered pramipexole 0.125 mg oral tablet 0.125 mg = 1 tab, Oral, BID, for restless legs, # 180 tab, 0 Refill(s), Pharmacy: [facility] #58, 157.48, cm, 12/29/21 14:21:00 EDT, Height/Length Dosing, 117.93, kg, 12/29/21 14:21:00 EDT, Weight Dosing Start Date: 06/25/22 Status: Ordered rosuvastatin 5 mg oral tablet 5 mg = 1 tab, Oral, every evening, for 90 days, # 90 tab, 3 Refill(s), Pharmacy: [facility] #58 Start Date: 11/19/21 Status: Ordered Send to [place] Send to [facility], Send to [facility], Supply, See instructions, # 1 EA, 0 Refill(s) Start Date: 12/06/21 Status: Ordered Ventolin HFA 90 mcg/inh inhalation aerosol 180 mcg 2 puffs, Inhale, every 6 hr, use with spacer chamber as needed, # 18 g, 0 Refill(s), Pharmacy: [facility] #58, 157.48, cm, 12/29/21 14:21:00 EDT, Height/Length [...] Confirmed 08/14/20 Active Cerebrovascular disease Confirmed Active [place] 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 [...] Laboratory List Name Date .Manual Differential ([facility]) 06/25/22 CBC w/ Diff 06/25/22 IgE [facility] 06/25/22 Comprehensive Metabolic Panel (CMP) 06/25 Hemoglobin A1c 06/25/22 TSH w/ Rflx to Free T4 06/25/22 Most recent to oldest [Reference Range]: 1 WBC [5.0-10.0 x10^3/mcL] 12.3 x10^3/mcL *HI* (06/25/22 1:18 PM) RBC [4.1-5.3 x10^6/mcL] 4.3 x10^6/mcL (06/25/22 1:18 PM) Segs Man [40-75 %] 79 % *HI* (06/25/22 1:18 PM) Lymph Man [20-50 %] 14 % *LOW* (06/25/22 1:18 PM) [place] Man 6 % *NA* (06/25/22 1:18 PM) Eos Man 1 % *NA* (06/25/22 1:18 PM) BUN [7-18 mg/dL] 38 mg/dL *HI* (06/25/22 1:17 PM) Glucose Level [74-106 mg/dL] 139 mg/dL *HI* (1/10/23 1:17 PM) Potassium Level [3.5-5.1 mmol/L] 4.6 mmo l/L (06/25/22:17 PM) MCV [80.0-96.0] 89.6 (06/25/22:18 PM) RBC Morph Normal (06/25/22:18 PM) AST [15-37 unit/L] 18 unit/L (06/25/22:17 PM) ALT [14-59 unit/L] 25 unit/L (06/25/22:17 PM) MCHC [31.0-35.0 g/dL] 31.3 g/dL (06/25/22:18 PM) Sodium Level [136-145 mmol/L] 138 mmol/L (06/25/22: PM) Hct [37.0-47.0 %] 38.7 % (06/25/22:18 PM) Calcium Level [8.5-10.1 mg/dL] 9.0 mg/dL (06/25/22: PM) Albumin Level [3.4-5.0 g/dL] 3.3 g/dL *LOW* (06/25/22: PM) Protein Total [6.4-8.2 g/dL] 6.9 g/dL (06/25/22: PM) MCH [26.0-32.0 pg] 28.0 pg (06/25/22:18 PM) Bilirubin Total [0.2-1.0 mg/dL] 0.5 mg/d L (06/25/22: PM) Hgb [12.0-16.0 g/dL] 12.1 g/dL (06/25/22:18 PM) Alk Phos [46-146 unit/L] 114 unit/L (06/25/22: PM) Band Man [0-5 %] 0 % (06/25/22:18 PM) Platelets [130-450 x10^3/mcL] 294 x10^3/ mcL (06/25/22 1:18 PM) CO2 [21-32 mmol/L] 26 mmol/L (06/25/22:17 PM) TSH [0.358-3.740 mcIntlUnit/mL] 3.090 mc IntlUnit/mL (06/25/22 1:17 PM) eGFR Non-AA [>=60] 35 *LOW* (06/25/22 1:17 PM) eGFR AA [>=60] 35 *LOW* (06/25/22 1:17 PM) Hemoglobin A1c [4.0-6.0 %] 6.8 % *HI* (06/25/22 1:17 PM) Chloride Level [98-107 mmol/L] 102 mmol/ L (06/25/22 1:17 PM) RDW-CV [11.7-17.0 %] 16.0 % (06/25/22 1:18 PM) Abs Neut Man 9.7 x10^3/mcL *NA* (06/25/22 1:18 PM) Creatinine Level [0.55-1.02 mg/dL] 1.50 mg/dL *HI* (06/25/22 1:17 PM) IgE [facility] [<158 IntlUnit/mL] 24 IntlUnit/m L 1 *NA* (06/25/22 1:18 PM) Baso Man [0-1 %] 0 % (06/25/22 1:18 PM) 1Result Comment: Test performed [place] [address] Social History Social History Type Response Tobacco Never tobacco user T obacco Use:. Sex Female Patient Care team information Personnel Name: lAison Conley MD Address: Address: [address]
--- NOTE | 2022-08-23 14:27 | DI.RAD_ITS ---
Exam(s) XR RIBS LT W PA LAT CHEST EXAM: XR RIBS LT W PA LAT CHEST CLINICAL HISTORY: pain in rib 1 month,pleurodynia,r07.81 TECHNIQUE: 2D digital imaging was performed. Six images are obtained. COMPARISON: CR XR CHEST 2VW (D) from 10/03/2021 FINDINGS: MEDIASTINUM: Normal. HEART: Normal. PULMONARY VASCULATURE: Normal. LUNGS: No focal consolidating infiltrates. PLEURAL SPACE: No pleural effusion or pneumothorax. BONE:Within normal limits for the patient's age. LEFT RIBS: Normal. OTHER FINDINGS:Normal. IMPRESSION: 1. No acute pulmonary findings. 2. Unremarkable left ribs. DATA REPOSITORY: RADIATION DOSE DELIVERED:
== END 2022-08-23 14:16 ==
LOC: DI 13:57
PROVIDERS: PCP Family Medicine; Visit Provider Physician Assistant Surgical
DX: R07.81 Pleurodynia (principal)
CPT/HCPCS: 71046; 71100

== ENCOUNTER → 2022-11-26 10:17 | Outpatient (BNVA) | payer MEDICARE, MEDICAID, SELFPAY | PROVIDERS: PCP Family Medicine; Referring Provider Family Medicine; Visit Provider Internal Medicine Cardiovascular Disease | DX: I45.10 Unspecified right bundle-branch block (principal); J45.909 Unspecified asthma, uncomplicated | CPT/HCPCS: 99213 ==

== ENCOUNTER → 2023-05-19 13:57 | Outpatient (BNVA) | payer MEDICARE, MEDICAID, SELFPAY | PROVIDERS: PCP Family Medicine; Referring Provider Family Medicine; Visit Provider Student in an Organized Health Care Education/Training Program | DX: J45.909 Unspecified asthma, uncomplicated (principal); Z79.51 Long term (current) use of inhaled steroids; Z86.19 Personal history of other infectious and parasitic diseases; Z86.711 Personal history of pulmonary embolism | CPT/HCPCS: 99214 ==

== ENCOUNTER → 2023-06-19 13:25 | Outpatient (BNVA) | payer MEDICARE, MEDICAID, SELFPAY | PROVIDERS: PCP Family Medicine; Referring Provider Family Medicine; Visit Provider Physician Assistant Surgical | DX: J45.909 Unspecified asthma, uncomplicated (principal); Z86.19 Personal history of other infectious and parasitic diseases | CPT/HCPCS: 99214 ==

== ENCOUNTER → 2023-09-19 14:00 | Outpatient (BNVA) | payer MEDICARE, MEDICAID, SELFPAY | PROVIDERS: PCP Family Medicine; Referring Provider Family Medicine; Visit Provider Student in an Organized Health Care Education/Training Program | DX: J45.909 Unspecified asthma, uncomplicated (principal); R06.00 Dyspnea, unspecified; Z86.19 Personal history of other infectious and parasitic diseases | CPT/HCPCS: 99214 ==

== ENCOUNTER → 2023-12-23 12:23 | Outpatient (BNVA) | payer MEDICARE, MEDICAID, SELFPAY | PROVIDERS: PCP Family Medicine; Referring Provider Family Medicine; Visit Provider Physician Assistant Surgical ==

== ENCOUNTER 2023-12-23 14:56 | Outpatient (CLI) | payer MEDICARE, MEDICAID, SELFPAY ==
[2023-12-23 15:01] LABS: Abs Immature Grans 0.05 10^3/uL (0.0-0.06); Absolute Basophil Count 0.04 10^3/uL (0.0-0.2); Absolute Monocyte Count 0.59 10^3/uL (0.1-0.8); Absolute Neutrophil Count 7.81 10^3/uL (1.2-6.7); Basophils % 0.4 %; HCT 33.5 % (36.0-46.0); HGB 10.6 g/dL (11.2-15.7); Immature Grans % 0.5 %; Lymphocytes % 13.9 %; MCH 29.7 pg (27.0-33.0); MCHC 31.6 % (32.0-36.0); MCV 94 fL (80-95); MPV 10.2 fL (8.0-11.0); Monocytes % 5.8 %; Neutrophils % 77.4 %; Platelet Count 248 10^3/uL (130-400); RBC 3.57 10^6/uL (3.93-5.22); RDW-SD 47.9 fL; WBC 10.09 10^3/uL (4.4-10.8)
[2023-12-23 23:24] LABS: Rheumatoid Factor <8.6 IU/mL (<12.0)
[2023-12-25 11:49] LABS: Myeloperoxidase Ab IgG <0.2 U; Proteinase 3 Ab (PR3) <0.2 U
[2023-12-25 12:38] LABS: Scl 70 Antibodies, IgG <0.2 U
[2023-12-31 16:25] LABS: ANA Interpretation Negative (Negative); Cyclic Citrullinated Peptide <2.5 U/mL (<5.0); SS-B (La) Ab, IgG <3.3 CU (<20.0); Sm (Smith) Ab, IgG <8.0 CU (<20.0)
== END 2023-12-23 14:57 | disposition home or self-care (01) ==
LOC: LBO 14:57
PROVIDERS: PCP Family Medicine; Visit Provider Physician Assistant Surgical
DX: I27.20 Pulmonary hypertension, unspecified (principal); R91.8 Other nonspecific abnormal finding of lung field; R06.00 Dyspnea, unspecified
CPT/HCPCS: 36415; 86200; 94618; 99214; 83516; 85025; 86038; 86235; 86431

== ENCOUNTER → 2024-11-04 14:06 | Outpatient (BNVA) | payer MEDICARE, MEDICAID, SELFPAY | PROVIDERS: PCP Family Medicine; Referring Provider Family Medicine; Visit Provider Physician Assistant Surgical | DX: J45.909 Unspecified asthma, uncomplicated (principal); Z86.19 Personal history of other infectious and parasitic diseases; J96.91 Respiratory failure, unspecified with hypoxia | CPT/HCPCS: 99214 ==